=== PATIENT | female | born 1960 | race Caucasian/White ===

== ENCOUNTER 2016-07-27 14:31 | Emergency (ER) | payer MEDICAID ==
[~2016-07-27] VITALS: Ht 157.5 cm; Wt 117.9 kg
[~2016-07-27 14:31] MED LIST: ALBUTEROL SULF8.5 GM INH; ALBUTEROL2.5 MG/3 M HHN; ATORVASTATIN CA20 MG ORAL; AZITHROMYCIN250 MG ORAL; CIPRO500 MG PO; CYCLOBENZAPRINE10 MG ORAL; DIABETA5 MG ORAL; GLIPIZIDE-METF1 EACH PO; HYDROCODON-ACE1 EAC8 ORAL; IBUPROFEN600 MG ORAL; IBUPROFEN600 MG PO; LOPID600 MG ORAL; MACROBID100 MG ORAL; METFORMIN HCL1000 M1 ORAL; NAPROSYN500 M1 ORAL; NORCO 10/3251 EA ORAL; NORCO 5-325 TA1 EACH ORAL; NORCO 5-325 TA1 EACH PO; PREDNISONE50 MG PO; PROMETH-CODEIN 65 ML PO; PROTONIX40 MG ORAL; VICODIN ES1 EA ORAL; ZITHROMAX250 MG ORAL; [UNRECOGNIZED DRUG - OTHER]
[2016-07-27] MEDS ORDERED: GLIPIZIDE5 MG ORAL (14:59)
[2016-07-27] MEDS ORDERED: OMEPRAZOLE10 M1 ORAL (14:59)
[2016-07-27 15:33] VITALS: BP 134/81
[2016-07-27] MEDS ORDERED: ZITHROMAX250 MG ORAL (15:35)
[2016-07-27] MEDS ORDERED: ROBITUSSIN COU118 M4 PO (15:35)
[2016-07-27 15:40] VITALS: BP 134/81
--- NOTE | 2016-07-27 22:10 | Emergency Room Report ---
History of Present Illness General Chief Complaint: Upper Respiratory Illness Source: Patient Present Illness [facility] The patient is a 56-year-old female presenting with subjective fevers, cough, and nasal congestion for the past week. Patient states symptoms have been worsening. The patient denies any sick contacts or recent travel. Patient denies any pain and denies shortness of breath, wheezing, chest pain, abdominal pain, nausea, vomiting, headache, myalgia, rash Allergies: Coded Allergies: No Known Allergies (Unverified , 04/29/12) Patient History Past Medical History: see triage record Pertinent Family History: none Last Menstrual Period: Jul, 2008 Reviewed Nursing Documentation: PMH: Agreed, PSxH: Agreed Nursing Documentation-PMH Past Medical History: No History, Except For Hx Hypertension: Yes Hx Pacemaker: No Hx Asthma: No Hx COPD: No - BRONCHITIS Hx Diabetes: Yes Hx Cancer: No Hx Gastrointestinal Problems: Yes - GERD, GALLSTONES, HIATAL HERNIA Hx Cerebrovascular Accident: No Hx Seizures: No Review of Systems All Other Systems: negative except mentioned in HPI Physical Exam Vital Signs Date Time Temp Pulse Resp B/P Pulse Ox O2 Delivery O2 Flow Rate FiO2 07/27/16 14:54 98.8 99 16 134/81 98 Room Air Sp02 EP Interpretation: reviewed, normal General Appearance: no apparent distress, alert, GCS 15, non-toxic Head: normocephalic, atraumatic Eyes: bilateral eye PERRL, bilateral eye normal inspection ENT: hearing grossly normal, no angioedema, normal voice, TMs + canals normal, uvula midline, moist mucus membranes, tonsillar swelling, pharyngeal erythema Neck: full range of motion, supple/symm/no masses Respiratory: chest non-tender, lungs clear, normal breath sounds, no wheezing, speaking full sentences Cardiovascular #1: regular rate, rhythm, no edema Gastrointestinal: normal bowel sounds, non tender, soft, non-distended, no guarding, no rebound Musculoskeletal: back normal, gait/station normal, normal range of motion, non- tender Neurologic: alert, oriented x3, responsive, motor strength/tone normal, sensory intact, speech normal Psychiatric: judgement/insight normal, memory normal, mood/affect normal, no suicidal/homicidal ideation Skin: normal color, no rash, warm/dry, well hydrated Medical Decision Making PA Attestation Dr. Quan is my supervising physician. Patient management was discussed with my supervising physician Diagnostic Impression: Primary Impression: Pharyngitis, acute ER Course The patient is a 56-year-old female presenting with subjective fevers, cough, and nasal congestion for the past week. Differential diagnosis include but not limited to pharyngitis, sinusitis, pneumonia, rhinitis Physical exam: Vitals within normal limits. Afebrile. No apparent distress. HEENT: There is bilateral tonsillar edema with oropharyngeal erythema. Uvula midline. With decreased membranes. There is anterior cervical lymphadenopathy. Otherwise exam unremarkable. Lungs clear to auscultation bilaterally The patient will be discharged home with a prescription for azithromycin. ER precautions are given Last Vital Signs Date Time Temp Pulse Resp B/P Pulse Ox O2 Delivery O2 Flow Rate FiO2 07/27/16 15:40 98.8 89 16 134/81 98 Room Air Status: improved Disposition: HOME, SELF-CARE Condition: Improved Scripts Azithromycin* (ZITHROMAX*) 250 Mg Tablet 250 MG ORAL DAILY, #6 TAB 0 Refills Take two tables once daily for 1 day, then one tablet once daily for 4 days. Prov: ALLEN AU 07/27/16 Guaifenesin/Dextromethorphan (Robitussin Cough-Chest Dm Liq) 118 Ml Liquid 10 ML PO Q4HR, #118 ML Prov: ALLEN AU 07/27/16 Referrals: NON PHYSICIAN (PCP) Patient Instructions: Pharyngitis Additional Instructions: I discussed my findings with the patient. All questions and concerns have been answered. Treatment and medication compliance have been addressed. I advised the patient that they need to follow up with PMD in 3-5 days. Return to ED if pain remains or worsens, cough worsens or remains, you notice blood in your sputum, you notice wheezing, you experience a fever, or if needed for any reason. Patient verbalized understanding of discharge instructions. ALLEN AU Jul 27, 2016 22:10
[2016-08-28] MEDS ORDERED: MEDROL4 MG ORAL (13:43)
[2016-08-28] MEDS ORDERED: LEVAQUIN250 M1 ORAL (13:43)
== END 2016-07-27 15:40 | disposition home or self-care (01) ==
LOC: EMR 15:40
DX: J02.9 Acute pharyngitis, unspecified (principal); I10 Essential (primary) hypertension; E11.9 Type 2 diabetes mellitus without complications; K21.9 Gastro-esophageal reflux disease without esophagitis; K44.9 Diaphragmatic hernia without obstruction or gangrene
CPT/HCPCS: 99284

== ENCOUNTER 2016-08-22 00:53 | Emergency (ER) | payer MEDICAID ==
[~2016-08-22] VITALS: Ht 157.5 cm; Wt 117.9 kg
[~2016-08-22 00:53] MED LIST changes: +GLIPIZIDE5 MG ORAL; +OMEPRAZOLE10 M1 ORAL; +ROBITUSSIN COU118 M4 PO
[2016-08-22 01:05] VITALS: BP 122/78
[2016-08-22] MEDS ORDERED: PredniSONE 20mg tab ORAL ONE (01:30)
[2016-08-22] MEDS ORDERED: Ipratropium 0.02% Inh Soln 2.5ml UD HHN ONE (01:30)
[2016-08-22] MEDS ORDERED: Albuterol ud Inhalation HHN ONE (01:30)
[2016-08-22 01:47] LABS: APPEARANCE,URINE CLEAR; KETONES,URINE NEGATIVE (NEGATIVE); LEUKOCYTE ESTERASE ,URINE NEGATIVE (NEGATIVE); NITRITE,URINE NEGATIVE (NEGATIVE); PH,URINE 6 (4.5-8.0); PROTEIN,URINE NEGATIVE (NEGATIVE); UROBILINOGEN,URINE NORMAL MG/DL (0.0-1.0)
[2016-08-22] MEDS ORDERED: ALBUTEROL SULF8.5 GM INH (02:11)
[2016-08-22] MEDS ORDERED: PREDNISONE20 MG ORAL (02:11)
--- NOTE | 2016-08-22 02:11 | Emergency Room Report ---
History of Present Illness General Chief Complaint: Sore Throat Source: Patient Present Illness [facility] This is a 56-year-old female with no past medical history. She did say that she had a lot of bronchitis is a little kid. No diagnosis of asthma. She presents with coughing congestion for the last month. On and off. She's been on 2 courses of antibiotics already. Not getting better. Worse with exertion and deep breath. No fever or chills. No nausea no vomiting. Coughing is nonproductive in nature. Allergies: Coded Allergies: No Known Allergies (Unverified , 04/29/12) Patient History Past Medical History: see triage record, old chart reviewed Past Surgical History: other Pertinent Family History: none Social History: Denies: smoking Last Menstrual Period: 2008 Now: No : 11 Para: 6 Immunizations: other Reviewed Nursing Documentation: PMH: Agreed, PSxH: Agreed Nursing Documentation-PMH Hx Hypertension: Yes Hx Pacemaker: No Hx Asthma: No Hx COPD: No - BRONCHITIS Hx Diabetes: Yes Hx Cancer: No Hx Gastrointestinal Problems: Yes - GERD, GALLSTONES, HIATAL HERNIA Hx Cerebrovascular Accident: No Hx Seizures: No Review of Systems Eye: Denies: blurred vision, eye pain ENT: Reports: nose congestion, Denies: ear pain, throat swelling Respiratory: Reports: cough, shortness of breath Cardiovascular: Denies: chest pain, palpitations Gastrointestinal: Denies: abdominal pain, diarrhea, nausea, vomiting Musculoskeletal: Denies: back pain, joint pain Skin: Denies: rash Neurological: Denies: headache, numbness Endocrine: Denies: increased thirst, increased urine Hematologic/Lymphatic: Denies: easy bruising All Other Systems: negative except mentioned in HPI Physical Exam Vital Signs Date Time Temp Pulse Resp B/P Pulse Ox O2 Delivery O2 Flow Rate FiO2 08/22/16 01:00 98.4 117 20 119/75 96 Room Air vitals showed tachycardia Sp02 EP Interpretation: reviewed, normal General Appearance: well appearing, no apparent distress, alert Head: normocephalic, atraumatic Eyes: bilateral eye EOMI, bilateral eye PERRL ENT: hearing grossly normal, normal pharynx Neck: full range of motion, supple, no meningismus Respiratory: chest non-tender, lungs clear - Coughing fits with inspiration, normal breath sounds Cardiovascular #1: regular rate, rhythm, no murmur Gastrointestinal: normal bowel sounds, non tender, no mass, no organomegaly, no bruit, non-distended Musculoskeletal: back normal, gait/station normal, normal range of motion Psychiatric: mood/affect normal Skin: warm/dry Medical Decision Making Diagnostic Impression: Primary Impression: Upper respiratory infection Qualified Codes: J06.9 - Acute upper respiratory infection, unspecified; B97.89 - Other viral agents as the cause of diseases classified elsewhere Additional Impression: Acute bronchospasm due to viral infection ER Course Patient presents with upper respiratory infection with bronchospasm. This is a viral infection. She is much improved after breathing treatment. We'll add steroid. Urine showed no glycosuria and Accu-Chek is normal. I see no evidence of ACS, PE, dissection, pneumonia to name a few. Chest X-Ray Diagnostic Results EP Interpretation: Yes Findings: no consolidation, no effusion, no pneumothorax, no acute cardiopulmonary disease Number of Views: 1 Last Vital Signs Date Time Temp Pulse Resp B/P Pulse Ox O2 Delivery O2 Flow Rate FiO2 08/22/16 01:36 100 18 100 Room Air 08/22/16 01:05 98.6 122/78 Status: improved Disposition: HOME, SELF-CARE Condition: Stable Scripts Prednisone* (PREDNISONE*) 20 Mg Tablet 60 MG ORAL DAILY, #12 TAB Prov: MICHELLE CONTRERAS M.D. 08/22/16 Albuterol Sulfate* (ALBUTEROL SULFATE MDI*) 8.5 Gm Hfa.aer.ad 2 PUFF INH Q4H Y for cough/wheezing, #1 EA 0 Refills Prov: MICHELLE CONTRERAS M.D. 08/22/16 Referrals: [facility],REFERRING (PCP) Additional Instructions: Followup with your DrJenniffer in 2-3 days. Return if symptom worsen. MICHELLE CONTRERAS M.D. Aug 22, 2016 02:11
[2016-08-22 02:25] VITALS: BP 127/80
--- NOTE | 2016-08-22 13:47 | Diagnostic Imaging Report ---
Indication: SOB Technique: One view of the chest Comparison: none Findings: Body habitus limits assessment. Increased opacity is seen at both lung bases, probably due to overlying soft tissue, although infiltrate not completely excludable Lungs and pleural spaces are otherwise clear. Heart size is normal. No definite significant change Impression: Bilateral basilar opacities, probably on the basis of overlying soft tissue, but infiltrates not completely excludable. Correlate with clinical findings No acute process otherwise
[2016-08-28] MEDS ORDERED: LEVAQUIN250 M1 ORAL (13:43)
[2016-08-28] MEDS ORDERED: MEDROL4 MG ORAL (13:43)
== END 2016-08-22 02:25 | disposition home or self-care (01) ==
LOC: EMR 01:15
DX: J06.9 Acute upper respiratory infection, unspecified (principal); J98.01 Acute bronchospasm; I10 Essential (primary) hypertension; E11.9 Type 2 diabetes mellitus without complications; K44.9 Diaphragmatic hernia without obstruction or gangrene
CPT/HCPCS: 71010; 81003; 94640; 94664; 99284

== ENCOUNTER 2016-08-26 23:51 | Inpatient (IN) | payer MEDICAID ==
[~2016-08-26] VITALS: Ht 157.5 cm; Wt 113.4 kg
[~2016-08-26 23:51] MED LIST changes: +PREDNISONE20 MG ORAL
[2016-08-27] VITALS (10 sets, daily range): BP systolic 107–127; BP diastolic 72–80
[2016-08-27] MEDS ORDERED: Solu-MEDROL 125mg Inj IVP ONE (00:15)
[2016-08-27] MEDS ORDERED: Albuterol ud Inhalation HHN ONE (00:15)
[2016-08-27] MEDS ORDERED: Ipratropium 0.02% Inh Soln 2.5ml UD HHN ONE (00:15)
[2016-08-27 00:53] LABS: BASOPHILS % (AUTO) 0.8 % (0.0-2.0); LYMPHOCYTES % (AUTO) 36.6 % (20.0-45.0); MEAN CORPUSCULAR HEMOGLOBIN 29.3 PG (27.0-31.0); MEAN CORPUSCULAR HGB CONC 32.5 G/DL (32.0-36.0); MEAN CORPUSCULAR VOLUME 90 FL (80-99); MEAN PLATELET VOLUME 7.3 FL (6.5-10.1); MONOCYTES % (AUTO) 7.8 % (1.0-10.0); NEUTROPHILS % (AUTO) 52.9 % (45.0-75.0); PLATELET COUNT 210 K/UL (150-450); RED BLOOD COUNT 4.67 M/UL (4.20-5.40); RED CELL DISTRIBUTION WIDTH 12.5 % (11.6-14.8); WHITE BLOOD COUNT 6.5 K/UL (4.8-10.8)
[2016-08-27 01:02] LABS: INR 0.9 (0.9-1.1); PROTHROMBIN TIME 9.5 SEC (9.30-11.50)
[2016-08-27 01:07] LABS: TROPONIN I < 0.30 ng/mL (<=0.30)
[2016-08-27 01:11] LABS: CALCIUM 8.7 mg/dL (8.6-10.2); CREATININE 1.1 mg/dL (0.5-0.9); TOTAL PROTEIN 7.7 g/dL (6.6-8.7)
[2016-08-27 01:15] LABS: POTASSIUM 7.5 mEQ/L (3.4-4.9)
[2016-08-27 01:16] LABS: APPEARANCE,URINE CLEAR; KETONES,URINE NEGATIVE (NEGATIVE); PROTEIN,URINE 1+ (NEGATIVE)
[2016-08-27 01:17] LABS: LEUKOCYTE ESTERASE ,URINE NEGATIVE (NEGATIVE); NITRITE,URINE NEGATIVE (NEGATIVE); SQUAMOUS EPITHELIAL CELL,UR MODERATE /LPF (NONE/OCC); UROBILINOGEN,URINE NORMAL MG/DL (0.0-1.0)
[2016-08-27 01:18] LABS: BACTERIA,URINE FEW /HPF
[2016-08-27] MEDS ORDERED: cefTRIAXone 1 GM in NS 55 ML IVPB ONE (01:30)
[2016-08-27] MEDS ORDERED: Azithromycin 500 MG in D5W 275 ML IVPB ONE (01:30)
--- NOTE | 2016-08-27 01:42 | Emergency Room Report ---
History of Present Illness General Chief Complaint: Upper Respiratory Illness Source: Patient Present Illness [facility] The patient presents with a month of respiratory symptomatology. She been having a cough. She's producing yellow phlegm at this time without any blood. She hears herself wheezing. She's been seen twice before once here and also just a couple days ago when the hospital ([place]). She was given a prescription for Robitussin with codeine. She's not better. She does have dyspnea on exertion. The cough is keeping her awake. She is nauseated but has not been vomiting. She denies any diarrhea. She denies dysuria. Some headache with cough. No rashes. Post menopausal. She has a history of asthma/COPD and this is one of the worst episodes she has had. Allergies: Coded Allergies: No Known Allergies (Unverified , 04/29/12) Patient History Past Medical History: see triage record Social History: Reports: drug use - prior cocaine, smoking - Prior Social History Narrative At home Reviewed Nursing Documentation: PMH: Agreed, PSxH: Agreed Nursing Documentation-PMH Hx Hypertension: Yes Hx Pacemaker: No Hx Asthma: No Hx COPD: No - BRONCHITIS Hx Diabetes: Yes Hx Cancer: No Hx Gastrointestinal Problems: Yes - GERD, GALLSTONES, HIATAL HERNIA Hx Cerebrovascular Accident: No Hx Seizures: No Review of Systems All Other Systems: negative except mentioned in HPI Physical Exam Vital Signs Date Time Temp Pulse Resp B/P Pulse Ox O2 Delivery O2 Flow Rate FiO2 08/26/16 23:58 98.2 98 16 106/75 95 Room Air Sp02 EP Interpretation: reviewed, abnormal - interpreted as low by me General Appearance: well appearing, no apparent distress, GCS 15 Head: normocephalic Eyes: bilateral eye PERRL, bilateral eye normal inspection ENT: moist mucus membranes Neck: supple Respiratory: chest non-tender, crackles, rales, wheezing, expiration, inspiration Cardiovascular #1: regular rate, rhythm Cardiovascular #2: 2+ radial (R) Gastrointestinal: normal inspection, normal bowel sounds, non tender, no mass, non-distended Musculoskeletal: back normal, gait/station normal, normal range of motion Neurologic: alert, oriented x3, grossly normal Psychiatric: mood/affect normal Skin: normal inspection, warm/dry Medical Decision Making Diagnostic Impression: Primary Impression: RML pneumonia Qualified Codes: J18.9 - Pneumonia, unspecified organism Additional Impression: Bronchospasm ER Course The patient presents with a month's worth of respiratory symptoms. Differential includes influenza, bronchitis, pertussis, COPD exacerbation, pneumonia amongst others. Urgent evaluation with labs including blood cultures a lactate and EKG and x-ray are undertaken. The patient will be given Solu Medrol and also a breathing treatment here. The patient has a right middle lobe infiltrate. The fact that this process been going on for a month and she has bronchospasm the patient is to be admitted for IV antibiotics and continued respiratory treatments. Initial potassium returned critically high. The patient has no peaked T waves. This was repeated. Also BNP is obtained to exclude any pulmonary hypertension. Repeat potassium normal. BNP normal. Admit med Dr. Riggs. Laboratory Tests Test 08/27/16 00:27 08/27/16 00:37 08/27/16 01:30 White Blood Count 6.5 K/UL (4.8-10.8) Red Blood Count 4.67 M/UL (4.20-5.40) Hemoglobin 13.7 G/DL (12.0-16.0) Hematocrit 42.0 % (37.0-47.0) Mean Corpuscular Volume 90 FL (80-99) Mean Corpuscular Hemoglobin 29.3 PG (27.0-31.0) Mean Corpuscular Hemoglobin Concent 32.5 G/DL (32.0-36.0) Red Cell Distribution Width 12.5 % (11.6-14.8) Platelet Count 210 K/UL (150-450) Mean Platelet Volume 7.3 FL (6.5-10.1) Neutrophils (%) (Auto) 52.9 % (45.0-75.0) Lymphocytes (%) (Auto) 36.6 % (20.0-45.0) Monocytes (%) (Auto) 7.8 % (1.0-10.0) Eosinophils (%) (Auto) 2.0 % (0.0-3.0) Basophils (%) (Auto) 0.8 % (0.0-2.0) Prothrombin Time 9.5 SEC (9.30-11.50) Prothrombin Time INR 0.9 (0.9-1.1) PTT 26 SEC (23-33) Sodium Level 137 mEQ/L (135-145) 138 mEQ/L (135-145) Potassium Level 7.5 mEQ/L (3.4-4.9) *H 3.8 mEQ/L (3.4-4.9) Chloride Level 96 mEQ/L (98-107) L 99 mEQ/L (98-107) Carbon Dioxide Level 27 mEQ/L (20-30) 24 mEQ/L (20-30) Anion Gap 14 (5-15) 15 (5-15) Blood Urea Nitrogen 15 mg/dL (7-23) 15 mg/dL (7-23) Creatinine 1.1 mg/dL (0.5-0.9) H 1.0 mg/dL (0.5-0.9) H Estimate Glomerular Filtration Rate 51.0 mL/min (>60) 56.9 mL/min (>60) Glucose Level 130 mg/dL (74-106) H 144 mg/dL (74-106) H Lactic Acid Level 1.30 mmol/L (0.66-2.22) Calcium Level 8.7 mg/dL (8.6-10.2) 8.7 mg/dL (8.6-10.2) Total Bilirubin 0.3 mg/dL (0.0-1.2) Aspartate Amino Transferase (AST) 65 U/L (5-40) H Alanine Aminotransferase (ALT) 43 U/L (3-33) H Alkaline Phosphatase 82 U/L (35-104) Troponin I < 0.30 ng/mL (<=0.30) Total Protein 7.7 g/dL (6.6-8.7) Albumin 4.0 g/dL (3.5-5.2) Globulin 3.7 g/dL Albumin/Globulin Ratio 1.0 (1.0-2.7) Urine Color Yellow Urine Appearance Clear Urine pH 5.0 (4.5-8.0) Urine Specific [place] 1.020 (1.005-1.035) Urine Protein 1+ (NEGATIVE) H Urine Glucose (UA) Negative (NEGATIVE) Urine Ketones Negative (NEGATIVE) Urine Occult Blood 1+ (NEGATIVE) H Urine Nitrite Negative (NEGATIVE) Urine Bilirubin Negative (NEGATIVE) Urine Urobilinogen Normal MG/DL (0.0-1.0) Urine Leukocyte Esterase Negative (NEGATIVE) Urine RBC 2-4 /HPF (0 - 2) H Urine WBC 2-4 /HPF (0 - 2) Urine Squamous Epithelial Cells Moderate /LPF (NONE/OCC) H Urine Bacteria Few /HPF (NONE) Pro-B-Type Natriuretic Peptide 5 pg/mL (0-125) Microbiology Date/Time Source Procedure Growth Status 08/27/16 00:30 Nasal Nares Influenza Types A,B Antigen (ROC) - Final Complete EKG Diagnostic Results Rate: normal Rhythm: NSR ST Segments: no acute changes Rhythm Strip Diag. Results EP Interpretation: yes Rhythm: NSR, no PVC's, no ectopy Chest X-Ray Diagnostic Results EP Interpretation: Yes Findings: no effusion, no pneumothorax, other - Right middle lobe infiltrate Number of Views: 1 Last Vital Signs Date Time Temp Pulse Resp B/P Pulse Ox O2 Delivery O2 Flow Rate FiO2 08/27/16 00:45 96 16 99 Room Air 08/27/16 00:10 98.2 107/75 Status: improved Disposition: ADMITTED INPATIENT Condition: Serious Javon Dill M.D. Aug 27, 2016 01:42
[2016-08-27 02:00] LABS: CALCIUM 8.7 mg/dL (8.6-10.2); GLOMERULAR FILTRATION RATE 56.9 mL/min (>60); POTASSIUM 3.8 mEQ/L (3.4-4.9)
[2016-08-27] MEDS ORDERED: Azithromycin Inj IV ONE (02:41)
[2016-08-27] MEDS ORDERED: IOPHEN-C NR LI473 ML PO (05:31)
[2016-08-27] MEDS ORDERED: BENZONATATE200 MG ORAL (05:31)
[2016-08-27] MEDS ORDERED: Nitroglycerin Subl 0.4mg tab (Bottle Of 25) SL PRN (08:30)
[2016-08-27] MEDS ORDERED: Morphine Sulfate 2mg/ml Inj IVP PRN (08:30)
[2016-08-27] MEDS ORDERED: LORazepam Inj 2mg/ml 1ml IV PRN (08:30)
[2016-08-27] MEDS ORDERED: DuoNeb 0.5-3(2.5)mg/3ml neb HHN PRN (08:30)
[2016-08-27] MEDS ORDERED: Promethazine/Codeine 5ml UD ORAL PRN (08:30)
[2016-08-27] MEDS ORDERED: Theophylline ER 100mg ORAL SCH (09:00)
[2016-08-27] MEDS ORDERED: Heparin 5000 units/ml inj SUBQ SCH (09:00)
--- NOTE | 2016-08-27 10:15 | Diagnostic Imaging Report ---
Indication: COUGH Technique: One view of the chest Comparison: 08/22/2016 Findings: Mild generalized interstitial prominence and central bronchial wall thickening persists, appears similar to the prior exam, suspect chronic although mild interstitial congestion not completely excludable. The heart is borderline enlarged. The pleural spaces are clear. Impression: Equivocal mild interstitial prominence, suspect chronic although mild interstitial congestion not completely excludable. Correlate with clinical findings Borderline cardiomegaly This agrees with the preliminary interpretation provided by the emergency room physician
[2016-08-27] MEDS ORDERED: NovoLOG Insulin Flexpen SUBQ SCH (11:30)
[2016-08-27] MEDS ORDERED: Solu-MEDROL 125mg Inj IV SCH (12:00)
--- NOTE | 2016-08-27 15:28 | History and Physical ---
History of Present Illness General Date patient seen: Aug 27, 2016 Reason for Hospitalization: Upper Respiratory Illness Present Illness HPI 56 year old patient with Hx of DM and Asthma presented with a month of cough. producing yellow phlegm, wheezing. She's been seen twice before once here and also just a couple days ago when the hospital. She does have dyspnea on exertion. she is admitted for dysnpnea and acute exacerbation of asthma Allergies: Coded Allergies: No Known Allergies (Unverified , 04/29/12) Medication History Scheduled Atorvastatin Calcium* (Atorvastatin Calcium*), 20 MG ORAL BEDTIME, (Reported) Glipizide* (Glipizide*), 10 MG ORAL DAILY, (Reported) Metformin Hcl* (Metformin Hcl*), 1,000 MG ORAL BID, (Reported) Omeprazole (Omeprazole), Unknown Dose ORAL DAILY, (Reported) Prednisone* (Prednisone*), 60 MG ORAL DAILY Scheduled PRN Albuterol Sulfate* (Albuterol Sulfate Mdi*), 2 PUFF INH Q4H PRN for cough/ wheezing Benzonatate* (Benzonatate*), 200 MG ORAL THREE TIMES A DAY PRN for For Cough, ( Reported) Miscellaneous Medications Guaifenesin/Codeine Phosphate (Iophen-C Nr Liquid), 473 ML PO, (Reported) Discontinued Medications Albuterol Sulfate* (Albuterol Sulfate Mdi*), 2 PUFF INH Q6H Discontinued Reason: Therapy completed Azithromycin* (Zithromax*), 250 MG ORAL DAILY Discontinued Reason: Therapy completed Glipizide/Metformin Hcl (Glipizide-Metformin 2.5-250 Mg), 1 EACH PO TWICE A DAY, (Reported) Discontinued Reason: Therapy completed Guaifenesin/Dextromethorphan (Robitussin Cough-Chest Dm Liq), 10 ML PO Q4HR Discontinued Reason: Therapy completed Hydrocodone Bit/Acetaminophen 5-325* ([place] 5-325*), 1 TAB ORAL Q6H PRN for For Pain Discontinued Reason: Therapy completed Promethazine HCl/Codeine (Prometh-Codein 6.25-10 mg/5 ml), 5 ML PO q4-6 hours PRN for For Cough Discontinued Reason: Therapy completed Patient History Healthcare decision maker Resuscitation status Full Code Advanced Directive on File Past Medical/Surgical History Past Medical/Surgical History: (1) bronchitis (2) Diabetes Review of Systems All Other Systems: negative except mentioned in HPI Physical Exam General Appearance: WD/WN Lines, tubes and drains: peripheral, central line HEENT: normocephalic, anicteric Respiratory/Chest: chest wall non-tender, lungs clear Cardiovascular/Chest: normal peripheral pulses, normal rate Abdomen: normal bowel sounds, non tender Extremities: normal range of motion, non-tender Last 24 Hour Vital Signs Date Time Temp Pulse Resp B/P Pulse Ox O2 Delivery O2 Flow Rate FiO2 08/27/16 11:20 98.2 101 19 126/80 95 Room Air 08/27/16 09:49 98.1 80 19 127/76 95 Room Air 08/27/16 08:15 98.1 80 19 127/76 95 Room Air 08/27/16 08:05 98.1 80 19 127/76 95 Room Air 08/27/16 07:44 98.0 99 21 116/73 96 Room Air 08/27/16 07:02 98.0 99 21 116/73 96 Room Air 08/27/16 06:10 98.0 99 18 114/72 96 Room Air 08/27/16 04:10 97.8 99 18 110/72 96 Room Air 08/27/16 02:10 97.8 99 19 109/74 98 Room Air 08/27/16 00:45 96 16 99 Room Air 08/27/16 00:26 98 16 95 Room Air 08/27/16 00:25 98 16 Room Air 08/27/16 00:10 98 16 Room Air 08/27/16 00:10 98.2 98 16 107/75 98 Room Air 08/26/16 23:58 98.2 98 16 106/75 95 Room Air Intake and Output 08/26/16 08/27/16 19:00 07:00 Intake Total 330 ml Balance 330 ml IV Total 330 ml Laboratory Tests Test 08/27/16 00:27 08/27/16 00:37 08/27/16 01:30 White Blood Count 6.5 K/UL (4.8-10.8) Red Blood Count 4.67 M/UL (4.20-5.40) Hemoglobin 13.7 G/DL (12.0-16.0) Hematocrit 42.0 % (37.0-47.0) Mean Corpuscular Volume 90 FL (80-99) Mean Corpuscular Hemoglobin 29.3 PG (27.0-31.0) Mean Corpuscular Hemoglobin Concent 32.5 G/DL (32.0-36.0) Red Cell Distribution Width 12.5 % (11.6-14.8) Platelet Count 210 K/UL (150-450) Mean Platelet Volume 7.3 FL (6.5-10.1) Neutrophils (%) (Auto) 52.9 % (45.0-75.0) Lymphocytes (%) (Auto) 36.6 % (20.0-45.0) Monocytes (%) (Auto) 7.8 % (1.0-10.0) Eosinophils (%) (Auto) 2.0 % (0.0-3.0) Basophils (%) (Auto) 0.8 % (0.0-2.0) Prothrombin Time 9.5 SEC (9.30-11.50) Prothromb Time International Ratio 0.9 (0.9-1.1) Activated Partial Thromboplast Time 26 SEC (23-33) Sodium Level 137 mEQ/L (135-145) 138 mEQ/L (135-145) Potassium Level 7.5 mEQ/L (3.4-4.9) *H 3.8 mEQ/L (3.4-4.9) Chloride Level 96 mEQ/L (98-107) L 99 mEQ/L (98-107) Carbon Dioxide Level 27 mEQ/L (20-30) 24 mEQ/L (20-30) Anion Gap 14 (5-15) 15 (5-15) Blood Urea Nitrogen 15 mg/dL (7-23) 15 mg/dL (7-23) Creatinine 1.1 mg/dL (0.5-0.9) H 1.0 mg/dL (0.5-0.9) H Estimat Glomerular Filtration Rate 51.0 mL/min (>60) 56.9 mL/min (>60) Glucose Level 130 mg/dL (74-106) H 144 mg/dL (74-106) H Lactic Acid Level 1.30 mmol/L (0.66-2.22) Calcium Level 8.7 mg/dL (8.6-10.2) 8.7 mg/dL (8.6-10.2) Total Bilirubin 0.3 mg/dL (0.0-1.2) Aspartate Amino Transf (AST/SGOT) 65 U/L (5-40) H Alanine Aminotransferase (ALT/SGPT) 43 U/L (3-33) H Alkaline Phosphatase 82 U/L (35-104) Troponin I < 0.30 ng/mL (<=0.30) Total Protein 7.7 g/dL (6.6-8.7) Albumin 4.0 g/dL (3.5-5.2) Globulin 3.7 g/dL Albumin/Globulin Ratio 1.0 (1.0-2.7) Urine Color Yellow Urine Appearance Clear Urine pH 5.0 (4.5-8.0) Urine Specific [place] 1.020 (1.005-1.035) Urine Protein 1+ (NEGATIVE) H Urine Glucose (UA) Negative (NEGATIVE) Urine Ketones Negative (NEGATIVE) Urine Occult Blood 1+ (NEGATIVE) H Urine Nitrite Negative (NEGATIVE) Urine Bilirubin Negative (NEGATIVE) Urine Urobilinogen Normal MG/DL (0.0-1.0) Urine Leukocyte Esterase Negative (NEGATIVE) Urine RBC 2-4 /HPF (0 - 2) H Urine WBC 2-4 /HPF (0 - 2) Urine Squamous Epithelial Cells Moderate /LPF (NONE/OCC) H Urine Bacteria Few /HPF (NONE) Pro-B-Type Natriuretic Peptide 5 pg/mL (0-125) Microbiology Date/Time Source Procedure Growth Status 08/27/16 00:30 Nasal Nares Influenza Types A,B Antigen (ROC) - Final Complete Height (Feet): 5 Height (Inches): 2.00 Weight (Pounds): 250 Medications Current Medications Medications (Trade) Dose Ordered Sig/Sam Route PRN Reason Start Time Stop Time Status Last Admin Dose Admin Acetaminophen (Tylenol) 650 mg Q4H PRN ORAL fever 08/27/16 08:30 09/26/16 08:29 Albuterol/ Ipratropium (DuoNeb 0.5-3(2.5)mg/3ml) 3 ml EVERY 4 HOURS PRN HHN dyspnea 08/27/16 08:30 2 08:29 Atorvastatin Calcium (Lipitor) 20 mg BEDTIME ORAL 08/27/16 21:00 09/26/16 20:59 Clonidine HCl (Catapres) 0.1 mg EVERY 4 HOURS PRN ORAL sbp more than 160 08/27/16 08:30 09/26/16 08:29 Dextrose (Dextrose 50%) STAT PRN IV Hypoglycemia 08/27/16 08:30 09/26/16 08:29 Heparin Sodium (Porcine) (Heparin 5000 units/ml) 5,000 units EVERY 12 HOURS SUBQ 08/27/16 09:00 09/26/16 08:59 08/27/16 09:05 Insulin Aspart (NovoLOG) BEFORE MEALS AND HS SUBQ 08/27/16 11:30 09/26/16 11:29 08/27/16 12:08 Lorazepam (Ativan 2mg/ml 1ml) 0.5 mg Q4H PRN IV For Anxiety 08/27/16 08:30 09/03/16 08:29 Methylprednisolone Sodium Succinate (Solu-MEDROL) 60 mg EVERY 6 HOURS IV 08/27/16 12:00 09/26/16 11:59 08/27/16 12:08 Morphine Sulfate (Morphine Sulfate) 2 mg EVERY 4 HOURS PRN IVP severe pain 7-10 08/27/16 08:30 09/03/16 08:29 Nitroglycerin (Ntg) 0.4 mg Q5M X 3 DOSES PRN SL Prn Chest Pain 08/27/16 08:30 09/26/16 08:29 Ondansetron HCl (Zofran) 4 mg Q6H PRN IVP Nausea & Vomiting 08/27/16 08:30 09/26/16 08:29 Promethazine HCl/ Codeine (Phenergan with Codeine) 5 ml EVERY 6 HOURS PRN ORAL cough 08/27/16 08:30 09/26/16 08:29 Temazepam (Restoril) 15 mg HSPRN PRN ORAL Insomnia 08/27/16 08:30 09/03/16 08:29 Theophylline (Qasim-Dur) 100 mg EVERY 12 HOURS ORAL 08/27/16 09:00 09/26/16 08:59 08/27/16 09:04 Assessment/Plan Problem List: (1) Acute asthma exacerbation ICD Codes: J45.901 - Unspecified asthma with (acute) exacerbation SNOMED: [id number] Assessment/Plan steroids antibiotics pt is already feeling better and wants to go home. ROBERTO DOWD Aug 27, 2016 15:28
[2016-08-27] MEDS ORDERED: Atorvastatin 20mg tab ORAL SCH (21:00)
[2016-08-28] MEDS ORDERED: MEDROL4 MG ORAL (13:43)
[2016-08-28] MEDS ORDERED: LEVAQUIN250 M1 ORAL (13:43)
--- NOTE | 2016-08-28 13:44 | Discharge Summary ---
Discharge Summary Hospital Course Date of Admission Aug 27, 2016 at 02:18 Date of Discharge Aug 27, 2016 at 16:41 Admitting Diagnosis pneumonia HPI Reyna Hough is a 56 year old female who was admitted on Aug 27, 2016 at 02:18 for Pneumonia Hospital Course dc summary dictated #[id number] Discharge Medications New Medications: Levofloxacin* (Levaquin*) 250 Mg Tablet 250 MG ORAL DAILY, #5 TAB Methylprednisolone* (Medrol*) 4 Mg Tablet 4 MG ORAL DAILY, #10 TAB 0 Refills Continued Medications: Albuterol Sulfate* (Albuterol Sulfate Mdi*) 8.5 Gm Hfa.aer.ad 2 PUFF INH Q4H PRN for cough/wheezing, #1 EA 0 Refills Atorvastatin Calcium* (Atorvastatin Calcium*) 20 Mg Tablet 20 MG ORAL BEDTIME, TAB Benzonatate* (Benzonatate*) 200 Mg Capsule 200 MG ORAL THREE TIMES A DAY PRN for For Cough MDD 600 mg, PERLE Glipizide* (Glipizide*) 5 Mg Tablet 10 MG ORAL DAILY, TAB Guaifenesin/Codeine Phosphate (Iophen-C Nr Liquid) 473 Ml Liquid 473 ML PO, ML Metformin Hcl* (Metformin Hcl*) 1,000 Mg Tablet 1000 MG ORAL BID, TAB Omeprazole (Omeprazole) 10 Mg Capsule.dr Unknown Dose ORAL DAILY, #30 CAP 0 Refills Discharge Condition Upon Discharge: stable Discharge Disposition Patient was discharged to Home (01) Discharge Diagnoses: Discharge Instructions Discharge Instructions Special Instructions I have been assigned to complete a D/C Summary on this account. I was not involved in the patient management Lexis Burciaga NP (Vanchtein) Aug 28, 2016 13:44
--- NOTE | 2016-08-28 20:19 | Cardiology Report ---
APPROVED REPORT EKG Measurement Heart [id number] Normal sinus rhythm Normal ECG
--- NOTE | 2016-08-29 04:18 | Discharge Summary 2 SIG ---
DATE OF ADMISSION: 08/27/2016 DATE OF DISCHARGE: 08/27/2016 REASON FOR ADMISSION: 56 years old female, presented to the emergency room with respiratory symptoms. She reported having productive cough with yellow phlegm for three to four weeks. She denies hemoptysis. She reported wheezing and occasional shortness of breath. Denied chest pain. Denied pleuritic chest pain. She was in [facility] few days ago and was given prescription for cough syrup. She is not feeling better. She also reported dyspnea on exertion. The patient has a past history of asthma and diabetes. In the emergency department, chest x-ray revealed possible infiltrate. Also, potassium was critically high , however when repeated , came back negative. No peaked T-waves on EKG. EKG revealed normal sinus rhythm, no ST changes. Troponin negative. ProBNP was stable. Lactic acid within normal limits. No fever, no leukocytosis. ADMITTING DIAGNOSES: 1. Asthma exacerbation 2. Possible pneumonia. HOSPITAL COURSE: The patient admitted. The patient started on empiric antibiotic, intravenous steroids, and nebulizing treatment as needed. Supplemental oxygen as needed provided. Pulse oximetry was stable on room air. Antitussive provided as needed. The patient was feeling better by the end of the day and wanted to go home. Blood sugar was managed with sliding scale of insulin. The patient was discharged on empiric antibiotics and Medrol Dosepak. DISCHARGE DIAGNOSES: 1. Acute asthma exacerbation. 2. Diabetes mellitus. 3. Morbid obesity. 4. Possible pneumonia DISCHARGE MEDICATIONS: See medication reconciliation list. DISCHARGE INSTRUCTIONS: The patient to follow up with the primary medical doctor. The patient advised to follow up with the internal control manager per her insurance and to maintain routine treatment for asthma with daily inhaled steroids as will be further determined by internal control manager as outpatient. . Arely Riggs M.D. I have been assigned to dictate discharge summary on this account and I was not involved in the patient's management. Lexis [facility] hospitalRaheem N.PJenniffer DR: CULLEN JOB#: [id number] CC: MANDA
== END 2016-08-27 16:41 | disposition home or self-care (01) | DRG 141 ==
LOC: EMR 08-27 00:30 → 4E 08-27 02:18 → EDBEDREQ 08-27 05:47
DX: J45.901 Unspecified asthma with (acute) exacerbation (principal); J18.9 Pneumonia, unspecified organism; E11.9 Type 2 diabetes mellitus without complications; Z68.42 Body mass index [BMI] 45.0-49.9, adult; E66.01 Morbid (severe) obesity due to excess calories
CPT/HCPCS: 36415; 71010; 80048; 80053; 81003; 82962; 83605; 83880; 84484; 85025; 85610; 85730; 86710; 87070; 87205; 93005; 94640; 94664; J1815

== ENCOUNTER 2017-05-15 16:10 | Emergency (ER) | payer MEDICAID ==
[~2017-05-15] VITALS: Ht 157.5 cm; Wt 117.0 kg
[~2017-05-15 16:10] MED LIST changes: +BENZONATATE200 MG ORAL; +IOPHEN-C NR LI473 ML PO; +LEVAQUIN250 M1 ORAL; +MEDROL4 MG ORAL
[2017-05-15 16:20] VITALS: BP 106/54
[2017-05-15 16:57] LABS: ABG BASE EXCESS 0; ABG PCO2 36.1 mmHg (35.0-45.0)
--- NOTE | 2017-05-15 17:07 | Emergency Room Report ---
History of Present Illness General Chief Complaint: General Complaint Source: Patient Present Illness HPI 57-year-old female history of hyperlipidemia and diabetes presenting with hyperglycemia. Patient states that she takes metformin and no other medication. Patient states that for one week she has had polyuria and polydipsia, has had increasing blood sugars, the max was 460. Denies any fever chills chest pain nausea vomiting diarrhea Allergies: Coded Allergies: No Known Allergies (Unverified , 04/29/12) Patient History Past Medical History: see triage record Past Surgical History: none Pertinent Family History: none Last Menstrual Period: Post Reviewed Nursing Documentation: PMH: Agreed, PSxH: Agreed Nursing Documentation-PMH Hx Cardiac Problems: No Hx Hypertension: Yes Hx Pacemaker: No Hx Asthma: No Hx COPD: Yes Hx Diabetes: Yes - Type2 Hx Cancer: No Hx Gastrointestinal Problems: Yes - Gall stones Hx Dialysis: Yes - Hepatomegaly Hx Neurological Problems: No Hx Cerebrovascular Accident: No Hx Seizures: No Review of Systems All Other Systems: negative except mentioned in HPI Physical Exam Vital Signs Date Time Temp Pulse Resp B/P (MAP) Pulse Ox O2 Delivery O2 Flow Rate FiO2 05/15/17 16:16 97.9 87 20 115/80 97 Room Air Sp02 EP Interpretation: reviewed, normal General Appearance: normal inspection, well appearing, no apparent distress, alert, GCS 15, non-toxic Head: normocephalic, atraumatic Eyes: bilateral eye normal inspection, bilateral eye PERRL, bilateral eye EOMI ENT: normal ENT inspection, normal pharynx, normal voice, moist mucus membranes Neck: normal inspection, full range of motion, supple Respiratory: normal inspection, lungs clear, normal breath sounds, no respiratory distress, no retraction, no wheezing, speaking full sentences, chest symmetrical Cardiovascular #1: normal inspection, regular rate, rhythm, no edema, normal capillary refill Cardiovascular #2: 2+ radial (R), 2+ radial (L) Gastrointestinal: normal inspection, non tender, soft, non-distended, no guarding Musculoskeletal: normal inspection, back normal, normal range of motion, non- tender Neurologic: normal inspection, alert, oriented x3, responsive, motor strength/ tone normal, sensory intact, normal gait, speech normal Psychiatric: normal inspection, judgement/insight normal, memory normal Skin: normal inspection, normal color, no rash, warm/dry, well hydrated, normal turgor Medical Decision Making Diagnostic Impression: Primary Impression: Hyperglycemia ER Course 57 yo female with hyperglycemia DDX: Hyperglycemia rule out DKA, rule out other electrolyte abnormalities, rule out dehydration, infectious UTI/pneumonia Plan: Obtain labs, ua, ucx, CXR, EKG ER course: Patient has remained stable during ED stay. IV fluids given Patient had 2 L fluid given Repeat Accu-Chek was 258 even after patient ate a meal Labs - NOT in dka She has been stable during ED stay We'll discharge Disposition: Patient is to be discharged to home. Patient is instructed to follow up with their primary care doctor within 5 days. \Strict return precautions discussed with patient such as fever, chills, worsening/severe pain, nausea, vomiting, which may indicate severe illness. Patient verbalizes understanding and agrees with plan. Please note that this Emergency Department Report was dictated using [employer] clerk food [employer] beverage technology software, occasionally this can lead to erroneous entry secondary to interpretation by the dictation equipment EKG Diagnostic Results EP Interpretation: Yes Rate: normal Rhythm: NSR ST Segments: No acute changes ASA given to patient: Rhythm Strip EP Interpretation: Yes Rate: 77 Rhythm: NSR, no PVCs, no ectopy Chest X-ray CXR: Ordered: Yes 1 view Indication: Chest pain EP interpretation: Yes Interpretation: No consolidation, no effusion, no PTX, no acute cardiopulmonary disease Impression: No acute disease Electronically signed by Preston Vogel MD Laboratory Tests Test 05/15/17 16:37 05/15/17 16:45 05/15/17 16:46 Urine Color Pale yellow Urine Appearance Clear Urine pH 6 (4.5-8.0) Urine Specific [place] 1.015 (1.005-1.035) Urine Protein Negative (NEGATIVE) Urine Glucose (UA) 4+ (NEGATIVE) H Urine Ketones 1+ (NEGATIVE) H Urine Occult Blood Negative (NEGATIVE) Urine Nitrite Negative (NEGATIVE) Urine Bilirubin Negative (NEGATIVE) Urine Urobilinogen Normal MG/DL (0.0-1.0) Urine Leukocyte Esterase Negative (NEGATIVE) White Blood Count 6.6 K/UL (4.8-10.8) Red Blood Count 4.89 M/UL (4.20-5.40) Hemoglobin 12.7 G/DL (12.0-16.0) Hematocrit 41.8 % (37.0-47.0) Mean Corpuscular Volume 85 FL (80-99) Mean Corpuscular Hemoglobin 25.9 PG (27.0-31.0) L Mean Corpuscular Hemoglobin Concent 30.4 G/DL (32.0-36.0) L Red Cell Distribution Width 13.2 % (11.6-14.8) Platelet Count 253 K/UL (150-450) Mean Platelet Volume 6.5 FL (6.5-10.1) Neutrophils (%) (Auto) 54.3 % (45.0-75.0) Lymphocytes (%) (Auto) 31.6 % (20.0-45.0) Monocytes (%) (Auto) 8.8 % (1.0-10.0) Eosinophils (%) (Auto) 3.9 % (0.0-3.0) H Basophils (%) (Auto) 1.4 % (0.0-2.0) Sodium Level 137 MMOL/L (136-145) Potassium Level 3.9 MMOL/L (3.5-5.1) Chloride Level 101 MMOL/L (98-107) Carbon Dioxide Level 25 MMOL/L (21-32) Anion Gap 11 mmol/L (5-15) Blood Urea Nitrogen 9 mg/dL (7-18) Creatinine 0.8 MG/DL (0.55-1.30) Estimate Glomerular Filtration Rate > 60 mL/min (>60) Glucose Level 348 MG/DL (74-106) H Calcium Level 9.3 MG/DL (8.5-10.1) Magnesium Level 2.0 MG/DL (1.8-2.4) Total Bilirubin 0.4 MG/DL (0.2-1.0) Aspartate Amino Transferase (AST) 21 U/L (15-37) Alanine Aminotransferase (ALT) 35 U/L (12-78) Alkaline Phosphatase 139 U/L (46-116) H Total Protein 7.8 G/DL (6.4-8.2) Albumin 3.7 G/DL (3.4-5.0) Globulin 4.1 g/dL Albumin/Globulin Ratio 0.9 (1.0-2.7) L Acetone Level Negative (NEGATIVE) Arterial Blood pH 7.430 (7.350-7.450) Arterial Blood Partial Pressure CO2 36.1 mmHg (35.0-45.0) Arterial Blood Partial Pressure O2 64.0 mmHg (75.0-100.0) L Arterial Blood HCO3 23.7 mmol/L (22.0-26.0) Arterial Blood Oxygen Saturation 89.8 % (92.0-98.0) L Arterial Blood Base Excess 0 [place] Test N/a Last Vital Signs Date Time Temp Pulse Resp B/P (MAP) Pulse Ox O2 Delivery O2 Flow Rate FiO2 05/15/17 16:16 97.9 87 20 115/80 97 Room Air Preston Vogel M.D. May 15, 2017 17:07
[2017-05-15 17:12] LABS: APPEARANCE,URINE CLEAR; KETONES,URINE 1+ (NEGATIVE); LEUKOCYTE ESTERASE ,URINE NEGATIVE (NEGATIVE); NITRITE,URINE NEGATIVE (NEGATIVE); PH,URINE 6 (4.5-8.0); PROTEIN,URINE NEGATIVE (NEGATIVE); UROBILINOGEN,URINE NORMAL MG/DL (0.0-1.0)
[2017-05-15 17:20] LABS: BASOPHILS % (AUTO) 1.4 % (0.0-2.0); EOSINOPHILS % (AUTO) 3.9 % (0.0-3.0); LYMPHOCYTES % (AUTO) 31.6 % (20.0-45.0); MEAN CORPUSCULAR HEMOGLOBIN 25.9 PG (27.0-31.0); MEAN CORPUSCULAR HGB CONC 30.4 G/DL (32.0-36.0); MEAN CORPUSCULAR VOLUME 85 FL (80-99); MEAN PLATELET VOLUME 6.5 FL (6.5-10.1); MONOCYTES % (AUTO) 8.8 % (1.0-10.0); NEUTROPHILS % (AUTO) 54.3 % (45.0-75.0); PLATELET COUNT 253 K/UL (150-450); RED BLOOD COUNT 4.89 M/UL (4.20-5.40); RED CELL DISTRIBUTION WIDTH 13.2 % (11.6-14.8); WHITE BLOOD COUNT 6.6 K/UL (4.8-10.8)
[2017-05-15 17:28] LABS: ALANINE AMINOTRANSFERASE 35 U/L (12-78); ALBUMIN/GLOBULIN RATIO 0.9 (1.0-2.7); ANION GAP 11 mmol/L (5-15); ASPARTATE AMINO TRANSFERASE 21 U/L (15-37); CALCIUM 9.3 MG/DL (8.5-10.1); CARBON DIOXIDE 25 MMOL/L (21-32); CHLORIDE 101 MMOL/L (98-107); CREATININE 0.8 MG/DL (0.55-1.30); GLOMERULAR FILTRATION RATE > 60 mL/min (>60); POTASSIUM 3.9 MMOL/L (3.5-5.1); SODIUM 137 MMOL/L (136-145); TOTAL PROTEIN 7.8 G/DL (6.4-8.2)
[2017-05-15 18:55] VITALS: BP 108/68
[2017-05-15 19:10] VITALS: BP 108/68
--- NOTE | 2017-05-16 10:17 | Diagnostic Imaging Report ---
Indication: Chest pain Technique: One view of the chest Comparison: 08/27/2016 Findings: Lungs and pleural spaces are clear. Heart size is normal. No significant interim change Impression: No acute process
--- NOTE | 2017-05-16 16:38 | Cardiology Report ---
APPROVED REPORT EKG Measurement Heart [id number] Normal sinus rhythm Normal ECG
== END 2017-05-15 19:21 | disposition home or self-care (01) ==
LOC: EMR 17:23
DX: E11.65 Type 2 diabetes mellitus with hyperglycemia (principal); I10 Essential (primary) hypertension; J44.9 Chronic obstructive pulmonary disease, unspecified; E78.5 Hyperlipidemia, unspecified
CPT/HCPCS: 36415; 36600; 71010; 80053; 81003; 82009; 82803; 82962; 83735; 85025; 93005; 96360; 96361; 99284

== ENCOUNTER 2017-07-26 14:06 | Emergency (ER) | payer MEDICAID ==
[~2017-07-26] VITALS: Ht 157.5 cm; Wt 93.0 kg
[2017-07-26 14:10] VITALS: BP 125/80
[2017-07-26] MEDS ORDERED: TAMIFLU75 MG ORAL (14:21)
[2017-07-26] MEDS ORDERED: PROMETH-CODEIN 65 ML PO (14:21)
[2017-07-26] MEDS ORDERED: ALBUTEROL SULF8.5 GM INH (14:21)
[2017-07-26 14:27] VITALS: BP 112/80
--- NOTE | 2017-07-26 18:29 | Emergency Room Report ---
History of Present Illness General Chief Complaint: Flu Like Symptoms Source: Patient Present Illness HPI Patient presents emergency department today complaining cough and congestion. Patient states like she has asthma and has been coughing and short of breath. She states that she's had symptoms for a couple days associated fever. She denies any shortness breath he denies any leg pain leg swelling. Symptoms noted to be moderate to severe. Patient does have multiple comorbidities.No other modifying factors. No other associated signs and symptoms. No other complaints were noted. Allergies: Coded Allergies: No Known Allergies (Unverified , 04/29/12) Patient History Past Medical History: DM, HTN, COPD Past Surgical History: none Pertinent Family History: none Social History: Denies: smoking, alcohol use, drug use Reviewed Nursing Documentation: PMH: Agreed, PSxH: Agreed Nursing Documentation-PMH Hx Cardiac Problems: No Hx Hypertension: Yes Hx Pacemaker: No Hx Asthma: No Hx COPD: Yes Hx Diabetes: Yes - Type2 Hx Cancer: No Hx Gastrointestinal Problems: Yes - Gall stones Hx Dialysis: Yes - Hepatomegaly Hx Neurological Problems: No Hx Cerebrovascular Accident: No Hx Seizures: No Review of Systems All Other Systems: negative except mentioned in HPI Physical Exam Vital Signs Date Time Temp Pulse Resp B/P (MAP) Pulse Ox O2 Delivery O2 Flow Rate FiO2 07/26/17 14:10 99.0 113 20 125/80 98 Room Air Sp02 EP Interpretation: reviewed, normal General Appearance: alert, mild distress - week Head: atraumatic Eyes: bilateral eye normal inspection ENT: normal ENT inspection, hearing grossly normal, normal voice Neck: normal inspection, full range of motion, supple, no bony tend Respiratory: normal inspection, no respiratory distress, no retraction, decreased breath sounds, wheezing, expiration Cardiovascular #1: regular rate, rhythm, no edema Gastrointestinal: normal inspection, normal bowel sounds, non tender, soft, no guarding, no hernia Genitourinary: no CVA tenderness Musculoskeletal: normal inspection, back normal, normal range of motion Neurologic: normal inspection, alert, responsive, speech normal Psychiatric: normal inspection, judgement/insight normal, mood/affect normal Skin: normal inspection, normal color, no rash Medical Decision Making Diagnostic Impression: Primary Impression: Influenza-like symptoms ER Course Patient presents emergency department today complaining cough and congestion. Differential diagnoses include pneumonia, viral syndrome, influenza just name a few. Patient's exam is consistent with influenza. I felt the patient would benefit from cough syrup as well as albuterol and Tamiflu.Patient is advised to follow up with primary doctor in 2-3 days and return the emergency room for any worsening symptoms and as needed. Last Vital Signs Date Time Temp Pulse Resp B/P (MAP) Pulse Ox O2 Delivery O2 Flow Rate FiO2 07/26/17 14:27 105 18 112/80 98 Room Air 07/26/17 14:10 99.0 Status: improved Disposition: HOME, SELF-CARE Condition: Stable Scripts Albuterol Sulfate* (ALBUTEROL SULFATE MDI*) 8.5 Gm Hfa.aer.ad 2 PUFF INH Q4H Y for cough/wheezing, #1 EA 0 Refills Prov: AMEE CARTER M.D. 07/26/17 Promethazine HCl/Codeine (Prometh-Codein 6.25-10 mg/5 ml) 5 Ml Syrup 5 ML PO QID for 7 Days, ML Prov: AMEE CARTER M.D. 07/26/17 Oseltamivir Phosphate (Tamiflu) 75 Mg Capsule 75 MG ORAL TWICE A DAY for 5 Days, CAP Prov: AMEE CARTER M.D. 07/26/17 Referrals: [facility],REFERR[facility] (PCP) Patient Instructions: Influenza, Adult, [id number] AMEE CARTER M.D. Jul 26, 2017 18:29
== END 2017-07-26 14:30 | disposition home or self-care (01) ==
LOC: EMR 14:16
DX: J11.1 Influenza due to unidentified influenza virus with other respiratory manifestations (principal); I10 Essential (primary) hypertension; E11.9 Type 2 diabetes mellitus without complications; J44.9 Chronic obstructive pulmonary disease, unspecified
CPT/HCPCS: 99284

== ENCOUNTER 2017-08-03 18:49 | Emergency (ER) | payer MEDICAID ==
[~2017-08-03] VITALS: Ht 157.5 cm; Wt 108.9 kg
[~2017-08-03 18:49] MED LIST changes: +TAMIFLU75 MG ORAL
[2017-08-03 19:30] VITALS: BP 131/81
[2017-08-03] MEDS ORDERED: Norco 5mg/325mg tab ORAL ONE (20:45)
[2017-08-03] MEDS ORDERED: PROMETHAZINE-C118 M1 ORAL (20:47)
[2017-08-03] MEDS ORDERED: GUAIFENESIN1200 MG PO (20:47)
[2017-08-03] MEDS ORDERED: TESSALON PERLE100 MG ORAL (20:47)
--- NOTE | 2017-08-03 20:49 | Emergency Room Report ---
History of Present Illness General Chief Complaint: General Complaint Source: Patient, Medical Record Present Illness HPI 57-year-old female presents to the emergency department complaining of 10 out of 10 in severity lateral left foot pain status post inversion injury earlier this morning. Patient reports her pain is localized exacerbated upon weightbearing or walking. Patient also reports that she has continued cough symptoms and was unable to fill a prescription for Tamiflu. Patient denies fevers or chills she reports continued cough with mucus that she is unable to clear.Denies numbness tingling or loss of sensation or gross motor movements of the extremities, incontinence of bowel or bladder. Denies CP, Palpitations, LOC , AMS, dizziness, Claudication, Changes in Vision, Sensation, paresthesias, or a sudden severe headache. Allergies: Coded Allergies: No Known Allergies (Unverified , 04/29/12) Patient History Past Medical History: see triage record Past Surgical History: none Pertinent Family History: none Immunizations: UTD Reviewed Nursing Documentation: PMH: Agreed, PSxH: Agreed Nursing Documentation-PMH Past Medical History: No History, Except For Hx Cardiac Problems: No Hx Hypertension: Yes Hx Pacemaker: No Hx Asthma: No Hx COPD: Yes Hx Diabetes: Yes - Type2 Hx Cancer: No Hx Gastrointestinal Problems: Yes - Gall stones Hx Dialysis: Yes - Hepatomegaly Hx Neurological Problems: No Hx Cerebrovascular Accident: No Hx Seizures: No Review of Systems All Other Systems: negative except mentioned in HPI Physical Exam Vital Signs Date Time Temp Pulse Resp B/P (MAP) Pulse Ox O2 Delivery O2 Flow Rate FiO2 08/03/17 18:51 98.6 89 18 131/81 98 Room Air Sp02 EP Interpretation: reviewed, normal General Appearance: no apparent distress, alert, GCS 15, non-toxic Head: normocephalic, atraumatic Eyes: bilateral eye normal inspection, bilateral eye PERRL ENT: hearing grossly normal, normal voice Neck: full range of motion Respiratory: chest non-tender, lungs clear, normal breath sounds, speaking full sentences Cardiovascular #1: regular rate, rhythm, normal capillary refill Cardiovascular #2: 2+ dorsalis pedis (R), 2+ dorsalis pedis (L) Rectal: deferred Genitourinary: normal inspection Musculoskeletal: back normal, gait/station normal, normal range of motion, no calf tenderness, tender - TTP lateral left foot, mild swelling , no bruising or obvious deformity. pt. NVI. Neurologic: alert, oriented x3, responsive, motor strength/tone normal, sensory intact, speech normal, grossly normal Psychiatric: judgement/insight normal Skin: normal color, no rash, warm/dry, well hydrated Lymphatic: no adenopathy Medical Decision Making NICKI Vogel is my supervising Physician whom patient management has been discussed with. Diagnostic Impression: Primary Impression: Sprain of foot, left Qualified Codes: S93.602A - Unspecified sprain of left foot, initial encounter Additional Impressions: URI, acute Cough ER Course 57-year-old female presents to the emergency department complaining of 10 out of 10 in severity lateral left foot pain status post inversion injury earlier this morning. Patient reports her pain is localized exacerbated upon weightbearing or walking. Patient also reports that she has continued cough symptoms and was unable to fill a prescription for Tamiflu. Patient denies fevers or chills she reports continued cough with mucus that she is unable to clear.Denies numbness tingling or loss of sensation or gross motor movements of the extremities, incontinence of bowel or bladder. Denies CP, Palpitations, LOC , AMS, dizziness, Claudication, Changes in Vision, Sensation, paresthesias, or a sudden severe headache. Ddx considered but are not limited to Fracture, dislocation, contusion, Sprain/ Strain/Spasm, DVT, URI just to name a few. Vital signs: are WNL, pt. is afebrile H&PE are most consistent with musculoskeletal injury will perform imaging to r/ o fractures/dislocations., cough/URI - no evidence of acute bacterial infections or influenza. ORDERS: - X-ray Left foot 3 views - negative for obvious acute fx, Dislocation, or significant soft tissue injury, per preliminary read in ED, and signed by NICKI Hayes, my supervising physician has reviewed, and agrees with my interpretation. ED INTERVENTIONS: - I discussed with this patient that Tamiflu is unnecessary at this time as she is afebrile and I also explained that if not started within 72 hours of onset it will not be beneficial I also explained to her that he searches shown that Tamiflu for only short duration of symptoms by 1 day. --Cast/walking shoe applied to left foot by heat treat technician. Pt. remains neurovascularly intact. DISCHARGE: At this time pt. is stable for d/c to home. Will provide printed patient care instructions, and any necessary prescriptions. Care plan and follow up instructions have been discussed with the patient prior to discharge. Other X-Ray Diagnostic Results Other X-Ray Diagnostic Results : # of Views/Limited Vs Complete: 3 View Indication: Pain EP Interpretation: Yes PA Xray: Interpretation reviewed, by supervising MD, and agrees with findings. Interpretation: no dislocation, no soft tissue swelling, no fractures Impression: No acute disease - possible sub-acute avulsions fx of metatarsal vs degenerative changes. Acute fx of low suspicion. Electronically Signed by: Yuliya Hayes PA-C Last Vital Signs Date Time Temp Pulse Resp B/P (MAP) Pulse Ox O2 Delivery O2 Flow Rate FiO2 08/03/17 18:51 98.6 89 18 131/81 98 Room Air Disposition: HOME, SELF-CARE Condition: Stable Scripts Ibuprofen* (MOTRIN*) 600 Mg Tablet 600 MG ORAL THREE TIMES A DAY, #30 TAB 0 Refills Prov: Yuliya Hayes 08/03/17 Codeine/Promethazine Hcl* (PROMETHAZINE-CODEINE SYRUP*) 118 Ml Syrup 5 ML ORAL Q6H Y for For Cough, #118 ML 0 Refills Prov: Yuliya Hayes 08/03/17 Benzonatate* (TESSALON PERLE*) 100 Mg Capsule 100 MG ORAL THREE TIMES A DAY, #20 PERLE Prov: Yuliya Hayes.A. 08/03/17 Guaifenesin (Guaifenesin) 1,200 Mg Tab.er.12h 1200 MG PO BID, #20 TAB Prov: Yuliya Hayes 08/03/17 Patient Instructions: Cough, Adult, [id number], Foot Sprain Additional Instructions: Take medications as directed. Follow up with an ALTERATIONS SEWER in 3-5 days, even if your symptoms have resolved. --Please review list of primary care clinics, if you do not already have a primary care provider who can give you an Orthopedic Referral. Return sooner to ED if new symptoms occur, or current symptoms become worse. Do not drink alcohol, drive, or operate heavy machinery while taking Cough syrup as this may cause drowsiness. - Please note that this Emergency Department Report was dictated using [employer] interpreter technology software, occasionally this can lead to erroneous entry secondary to interpretation by the dictation equipment. Yuliya Hayes Aug 03, 2017 20:49
[2017-08-03] MEDS ORDERED: IBUPROFEN600 MG ORAL (20:55)
[2017-08-03 21:00] VITALS: BP 131/81
--- NOTE | 2017-08-04 10:51 | Diagnostic Imaging Report ---
Indication: Pain Technique: XRAY Foot Complete L Comparison: 10/18/2013 Findings: There is no acute fracture or dislocation. Dorsal and plantar calcaneal enthesophytes are again noted. No focal soft tissue abnormality is appreciated. No radiopaque foreign body seen. Impression: No acute fracture or dislocation. Calcaneal enthesophytes. No significant interval change compared to 10/18/2013.
== END 2017-08-03 21:00 | disposition home or self-care (01) ==
LOC: EMR 19:10
DX: S93.602A Unspecified sprain of left foot, initial encounter (principal); X50.9XXA Other and unspecified overexertion or strenuous movements or postures, initial encounter; Y92.9 Unspecified place or not applicable; J06.9 Acute upper respiratory infection, unspecified; I10 Essential (primary) hypertension; J44.9 Chronic obstructive pulmonary disease, unspecified
CPT/HCPCS: 29540; 99284

== ENCOUNTER 2018-08-25 17:49 | Emergency (ER) | payer MEDICAID ==
[~2018-08-25] VITALS: Ht 154.9 cm; Wt 113.4 kg
[~2018-08-25 17:49] MED LIST changes: +GUAIFENESIN1200 MG PO; +PROMETHAZINE-C118 M1 ORAL; +TESSALON PERLE100 MG ORAL
[2018-08-25 18:05] VITALS: BP 128/80
--- NOTE | 2018-08-25 18:05 | NUR ---
ED Nurse Note: PT walked in c/o left buttock pain, pt states pain started on left calf and went to left buttock. denies injury or any trauma or fall. pt AA&ox4, gcs=15, skin warm and dry, resp even and unlabored, -n/v/d, ambulates w/ steady gait, will cont monitor.
[2018-08-25] MEDS ORDERED: Acetaminophen 500mg (ES) tab ORAL ONE (18:45)
--- NOTE | 2018-08-25 19:01 | NUR ---
ED Nurse Note: PT OFF TO ULTRASOUND
[2018-08-25] MEDS ORDERED: TYLENOL EXTRA500 MG ORAL (19:38)
[2018-08-25] MEDS ORDERED: LIDOCAINE700 M1 TP (19:38)
[2018-08-25] MEDS ORDERED: CLOTRIMAZOLE15 GM TOPIC (19:43)
--- NOTE | 2018-08-25 19:44 | Emergency Room Report ---
History of Present Illness General Chief Complaint: Pain Source: Patient Present Illness HPI 58-year-old female patient presents the ER complaining of left lower extremity pain for the past 3 days. Reports pain symptoms began behind her left knee and has since radiated up to her left buttock. Denies acute injury or trauma. Reports history of sciatica. Reports history of diabetes. Denies history of blood clots. Denies taking any blood thinner medications. Denies history of recent travel. Denies recent. Immobilization. Denies fever, chest pain, shortness of breath. Denies other aggravating or relieving factors. Denies back pain. Allergies: Coded Allergies: No Known Allergies (Unverified , 08/25/18) Patient History Past Medical History: see triage record Reviewed Nursing Documentation: PMH: Agreed; PSxH: Agreed Nursing Documentation-PMH Past Medical History: No History, Except For Hx Cardiac Problems: No Hx Hypertension: Yes Hx Pacemaker: No Hx Asthma: No Hx COPD: No Hx Diabetes: Yes - Type2 Hx Cancer: No Hx Gastrointestinal Problems: Yes - Gall stones Hx Dialysis: Yes - Hepatomegaly Hx Neurological Problems: No Hx Cerebrovascular Accident: No Hx Seizures: No Review of Systems All Other Systems: negative except mentioned in HPI Physical Exam Vital Signs Date Time Temp Pulse Resp B/P (MAP) Pulse Ox O2 Delivery O2 Flow Rate FiO2 08/25/18 17:59 98.4 88 15 132/83 98 Room Air Sp02 EP Interpretation: reviewed, normal General Appearance: well appearing, no apparent distress, alert, GCS 15, non- toxic Head: normocephalic, atraumatic Eyes: bilateral eye normal inspection, bilateral eye PERRL ENT: hearing grossly normal, normal pharynx, no angioedema, normal voice, uvula midline, moist mucus membranes Neck: full range of motion Respiratory: lungs clear, normal breath sounds, no rhonchi, no respiratory distress, no accessory muscle use, no wheezing, speaking full sentences Cardiovascular #1: regular rate, rhythm, no edema Musculoskeletal: back normal, digits/nails normal, gait/station normal, normal range of motion, non-tender, no calf tenderness, Sadie's Sign negative, other - no erythema or edema of buttock, no palpable mass Neurologic: alert, oriented x3, responsive, motor strength/tone normal, SLR negative, sensory intact Skin: no rash, other - Red beefy patch and skin folds of lower abdomen proximal to pelvis, scalloped borders Medical Decision Making PA Attestation Dr. Hu is my supervising Physician whom patient management has been discussed with. Diagnostic Impression: Primary Impression: Sciatic leg pain Additional Impression: Intertrigo ER Course Pt. presents to the ED c/o left posterior knee pain and left buttock pain. Ddx considered but are not limited to DVT, bursitis, popliteal cyst, sciatica, cellulitis, intertrigo, eczema, CHF exacerbation. Denies chest pain, SOB, lungs clear, no hx of CHF, low suspicion for CHF, does not require workup at this time. Vital signs: are WNL, pt. is afebrile ER COURSE: Denies acute injury or trauma, low suspicion for fracture, does not require xray at this time. US negative for DVT. Likely sciatica pain. Take Tylenol. Followup with PCP. Advised patient on RICE: rest, ice, compression, elevation. On repeat exam patient complaining of rash in the lower abdomen folds of her skin. Consistent with intertrigo. Will provide patient with topical antifungal cream. Advised to follow-up with boatbuilder apprentice wood. DISCHARGE: At this time pt is stable for d/c to home. Patient is resting comfortably, in no acute distress, nontoxic appearing, talking without difficulty. Patient to take medications as instructed Will provide with patient care instructions and any necessary prescriptions. Care plan and follow-up instructions provided. Patient instructed to follow-up with primary care provider in 3 - 5 days. Patient questions asked and answered. Patient reports understanding and agreement to treatment plan. ER precautions given. Patient instructed to return to ER immediately for any new or worsening of symptoms including but not limited to increasing SOB, persistent fever, chest pain, intractable vomiting. - Please note that this Emergency Department Report was dictated using [employer] education coordinator technology software, occasionally this can lead to erroneous entry secondary to interpretation by the dictation equipment. CT/MRI/US Diagnostic Results CT/MRI/US Diagnostic Results : Imaging Test Ordered: Left lower extremitiy venous duplex US Impression negative for DVT Last Vital Signs Date Time Temp Pulse Resp B/P (MAP) Pulse Ox O2 Delivery O2 Flow Rate FiO2 08/25/18 18:05 98.4 86 16 128/80 98 Room Air Disposition: HOME, SELF-CARE Condition: Stable Scripts Clotrimazole* (LOTRIMIN*) 15 Gm Cream..g. 1 APPLIC TOPIC TWICE A DAY for 10 Days, #15 GM Prov: Harsh Dodd 08/25/18 Acetaminophen* (TYLENOL EXTRA STRENGTH*) 500 Mg Tablet 500 MG ORAL Q8H PRN for Prn Headache/Temp > 101, #30 TAB 0 Refills Prov: Harsh Dodd 08/25/18 Lidocaine (Lidocaine) 1 Each Adh..patch 5 % TP DAILY for 7 Days, #7 PATCH Prov: Harsh Dodd 08/25/18 Patient Instructions: Sciatica, [id number] Additional Instructions: Patient instructed to follow up with primary care provider 3-5 and discuss further referral and imaging at that time. Patient instructed on rest, ice and heat. Keep skin clean and dry. Take medications as directed. Patient questions asked and answered. ER precautions given, patient instructed to return to ER immediately for any new or worsening of symptoms. [facility] [address] [facility] [address] [facility], [id number] [email or web address] For itchy symptoms taken Benadryl or Claritin. SE Benadryl drowsiness, do not take prior to drinking, driving, operating heavy machinery. Take Claritin during the day and Benadryl at night for itching symptoms. [facility] [place] [facility] Harsh Dodd Aug 25, 2018 19:44
[2018-08-25 19:50] VITALS: BP 130/68
--- NOTE | 2018-08-25 19:55 | NUR ---
ED Nurse Note: pt cleared to d/c per ER provider, pt discharge instruction provided w/prescription, pt advised to follow up with pcp or return to ed if s/s worsen or new s/s develop, pt education done via discussion and hand out, wristband removed, pt verbalized understanding and agrees with plan. pt vss, ambulatory w/ steady gait, resp even and unlabored, airway intact, all belongings left with pt.
--- NOTE | 2018-08-26 12:53 | Diagnostic Imaging Report ---
Indication: Left lower extremity pain and swelling. Technique: Duplex Doppler imaging performed from the left common femoral vein to the popliteal vein. FINDINGS: Normal compressibility demonstrated from the common femoral vein to the popliteal vein. Respiratory phasicity and good augmentation demonstrated on waveform analysis. There is no evidence of thrombosis. IMPRESSION: No evidence of deep venous thrombosis within the left lower extremity.
== END 2018-08-25 19:55 | disposition home or self-care (01) ==
LOC: EMR 18:41
DX: M54.32 Sciatica, left side (principal); L30.4 Erythema intertrigo; I10 Essential (primary) hypertension; E11.9 Type 2 diabetes mellitus without complications
CPT/HCPCS: 93971; 99284

== ENCOUNTER 2018-10-14 16:04 | Emergency (ER) | payer MEDICAID ==
[~2018-10-14] VITALS: Ht 156.2 cm; Wt 113.4 kg
[~2018-10-14 16:04] MED LIST changes: +CLOTRIMAZOLE15 GM TOPIC; +LIDOCAINE700 M1 TP; +TYLENOL EXTRA500 MG ORAL
[2018-10-14] MEDS ORDERED: LOSARTAN POTASS25 MG ORAL (16:11)
[2018-10-14] MEDS ORDERED: GLIMEPIRIDE4 MG ORAL (16:11)
[2018-10-14] MEDS ORDERED: NESINA12.5 MG PO (16:11)
[2018-10-14] MEDS ORDERED: HYDROcodone/Acetamin 5/325 tab ORAL ONE (16:45)
--- NOTE | 2018-10-14 16:54 | NUR ---
ED Nurse Note:xray being done.
--- NOTE | 2018-10-14 17:07 | NUR ---
ED Nurse Note:pt relates having pain to right middle finger since yest no injury that radiates up to rt. elbow. pending xray results. good cms distally
--- NOTE | 2018-10-14 17:41 | Emergency Room Report ---
History of Present Illness General Chief Complaint: Upper Extremity Injury Source: Medical Record Present Illness HPI 58-year-old female presents to the emergency department complaining of radiating pain in the right hand primarily in the right middle finger with paresthesias in the right fourth and fifth digits since yesterday. Patient reports symptoms to be progressive she states movement of her wrist or bumping the volar aspect of her wrist exacerbates her symptoms. Patient reports history of carpal tunnel syndrome in the past she denies repetitive daily work. Patient denies open wounds, erythema, warmth or discoloration of the affected extremities. Patient does report a history of diabetes she denies trauma or fall. Pt. reports stiffness in the last three digits of the right hand. She is right hand dominant. Denies hx of arthritis. Allergies: Coded Allergies: No Known Allergies (Unverified , 08/25/18) Patient History Past Medical History: see triage record Past Surgical History: none Pertinent Family History: none Last Menstrual Period: menopause Now: No Reviewed Nursing Documentation: PMH: Agreed; PSxH: Agreed Nursing Documentation-PMH Past Medical History: No History, Except For Hx Cardiac Problems: No Hx Hypertension: Yes Hx Pacemaker: No Hx Asthma: No Hx COPD: No Hx Diabetes: Yes - Type2 Hx Cancer: No Hx Gastrointestinal Problems: Yes - Gall stones Hx Dialysis: Yes - Hepatomegaly Hx Neurological Problems: No Hx Cerebrovascular Accident: No Hx Seizures: No Review of Systems All Other Systems: negative except mentioned in HPI Physical Exam Vital Signs Date Time Temp Pulse Resp B/P (MAP) Pulse Ox O2 Delivery O2 Flow Rate FiO2 10/14/18 16:07 99.0 88 18 138/84 98 Room Air Sp02 EP Interpretation: reviewed, normal General Appearance: no apparent distress, alert, GCS 15, non-toxic Head: normocephalic, atraumatic Eyes: bilateral eye normal inspection, bilateral eye PERRL ENT: hearing grossly normal, normal voice Neck: full range of motion Respiratory: lungs clear, normal breath sounds, speaking full sentences Cardiovascular #1: regular rate, rhythm, no edema, normal capillary refill Cardiovascular #2: 2+ radial (R), 2+ radial (L) Musculoskeletal: back normal, gait/station normal, normal range of motion, tender - TTP to the volar right wrist, and middle finger, pt. has severe exacerbation with tappin on the radial nerve in the wrist. Neurologic: alert, oriented x3, responsive, motor strength/tone normal, sensory intact, speech normal, grossly normal Psychiatric: judgement/insight normal Skin: normal color, no rash, warm/dry, well hydrated Lymphatic: no adenopathy Medical Decision Making NICKI Vogel is my supervising Physician whom patient management has been discussed with. Diagnostic Impression: Primary Impression: Carpal tunnel syndrome of right wrist Additional Impressions: Hand pain, right Hand paresthesia Qualified Codes: R20.2 - Paresthesia of skin ER Course 58-year-old female presents to the emergency department complaining of radiating pain in the right hand primarily in the right middle finger with paresthesias in the right fourth and fifth digits since yesterday. Patient reports symptoms to be progressive she states movement of her wrist or bumping the volar aspect of her wrist exacerbates her symptoms. Patient reports history of carpal tunnel syndrome in the past she denies repetitive daily work. Patient denies open wounds, erythema, warmth or discoloration of the affected extremities. Patient does report a history of diabetes she denies trauma or fall. Pt. reports stiffness in the last three digits of the right hand. She is right hand dominant. Denies hx of arthritis. Ddx considered but are not limited to Fracture, dislocation, contusion, Sprain/ Strain/Spasm, Epidural abscess, Neoplastic mets. Vital signs: are WNL, pt. is afebrile H&PE are most consistent with musculoskeletal injury will perform imaging to r/ o fractures/dislocations. ORDERS: - X-ray [ ] - negative for fx, Dislocation, or significant soft tissue injury, per preliminary read in ED, and signed by NICKI Hayes, my supervising physician has reviewed, and agrees with my interpretation. ED INTERVENTIONS: -[place] PO - Right wrist Splint applied by electrical electronics technician. Pt. remains neurovascularly intact. DISCHARGE: At this time pt. is stable for d/c to home. Will provide printed patient care instructions, and any necessary prescriptions. Care plan and follow up instructions have been discussed with the patient prior to discharge. Other X-Ray Diagnostic Results Other X-Ray Diagnostic Results : X-Ray ordered: Right hand # of Views/Limited Vs Complete: 3 View Indication: Pain EP Interpretation: Yes NICKI Xray: Interpretation reviewed, by supervising MD, and agrees with findings. Interpretation: no dislocation, no soft tissue swelling, no fractures Impression: No acute disease Electronically Signed by: Yuliya Hayes PA-C Last Vital Signs Date Time Temp Pulse Resp B/P (MAP) Pulse Ox O2 Delivery O2 Flow Rate FiO2 10/14/18 16:07 99.0 88 18 138/84 98 Room Air Disposition: HOME, SELF-CARE Condition: Stable Scripts Naproxen* (NAPROXEN*) 500 Mg Tablet.dr 500 MG ORAL TWICE A DAY for 5 Days, #10 TAB Prov: Yuliya Hayes 10/14/18 Diclofenac Sodium (VOLTAREN) 100 Gm Gel..gram. 1 APPLIC TP Q6HR, #100 GM Prov: Yuliya Hayes 10/14/18 Lidocaine (Lidocaine) 15 Gm Cream..g. 1 APPLIC TP Q6HR, #15 GM Prov: Yuliya Hayes 10/14/18 Patient Instructions: Carpal Tunnel Syndrome, [id number], Wrist Pain, Easy-to -Read Additional Instructions: Take medications as directed. Follow up with a Primary Care Provider in 3-5 days, even if your symptoms have resolved. --Please review list of primary care clinics, if you do not already have a primary care provider Return sooner to ED if new symptoms occur, or current symptoms become worse. - Please note that this Emergency Department Report was dictated using [employer] motel receptionist technology software, occasionally this can lead to erroneous entry secondary to interpretation by the dictation equipment. Yuliya Hayes Oct 14, 2018 17:41
--- NOTE | 2018-10-14 17:54 | NUR ---
ED Nurse Note:splint applied by adult education professional. reeval by juan brown
[2018-10-14 18:02] VITALS: BP 129/87
[2018-10-14] MEDS ORDERED: NAPROXEN500 M1 ORAL (18:09)
[2018-10-14] MEDS ORDERED: LIDOCAINE15 GM TP (18:09)
[2018-10-14] MEDS ORDERED: VOLTAREN100 G1 TP (18:09)
--- NOTE | 2018-10-14 18:25 | NUR ---
ED Nurse Note:pt given dc aci and script. pt states she feels better. aware and agrees to fu plan wrist splint intact good cms. pt waiting for ride in ed kenzie [email or web address]
[2018-10-14 18:26] VITALS: BP 129/87
--- NOTE | 2018-10-15 11:27 | Diagnostic Imaging Report ---
Indication: Right hand pain Findings: 3 views of the right hand were obtained. Normal bony mineralization and alignment are demonstrated. No acute fractures, erosions, or periosteal reaction are seen. Marginal osteophytes noted throughout the hand consistent with arthrosis. Soft tissues are unremarkable. Impression: No acute findings.
== END 2018-10-14 18:28 | disposition home or self-care (01) ==
LOC: EMR 17:18
DX: G56.01 Carpal tunnel syndrome, right upper limb (principal); E11.9 Type 2 diabetes mellitus without complications; I10 Essential (primary) hypertension
CPT/HCPCS: 29125; 99283

== ENCOUNTER 2019-05-10 18:48 | Emergency (ER) | payer MEDICAID ==
[~2019-05-10] VITALS: Ht 154.9 cm; Wt 101.6 kg
[~2019-05-10 18:48] MED LIST changes: +GLIMEPIRIDE4 MG ORAL; +LIDOCAINE15 GM TP; +LOSARTAN POTASS25 MG ORAL; +NAPROXEN500 M1 ORAL; +NESINA12.5 MG PO; +VOLTAREN100 G1 TP
--- NOTE | 2019-05-10 19:18 | NUR ---
ED Nurse Note: pt stated "I will just go see my pcp tomorrow morning." unable to assess vs prior to go. pt ambulated out with steady gait.
[2019-05-10 19:19] VITALS: BP 116/79
--- NOTE | 2019-05-10 20:55 | Emergency Room Report ---
History of Present Illness General Chief Complaint: Lower Extremity Injury Source: Patient Present Illness HPI 59-year-old children with unknown past medical history was triaged today to be seen right foot after injury however after waiting 15 minutes patient decided to go home and follow-up with primary care provider instead patient left before being seen. Allergies: Coded Allergies: No Known Allergies (Unverified , 08/25/18) Patient History Past Medical History: see triage record Past Surgical History: none Pertinent Family History: none Now: No Reviewed Nursing Documentation: PMH: Agreed; PSxH: Agreed Nursing Documentation-PMH Past Medical History: No History, Except For Hx Cardiac Problems: No Hx Hypertension: Yes Hx Pacemaker: No Hx Asthma: No Hx COPD: No Hx Diabetes: Yes - Type2 Hx Cancer: No Hx Gastrointestinal Problems: Yes - Gall stones Hx Dialysis: Yes - Hepatomegaly Hx Neurological Problems: No Hx Cerebrovascular Accident: No Hx Seizures: No Review of Systems All Other Systems: negative except mentioned in HPI Physical Exam Vital Signs Date Time Temp Pulse Resp B/P (MAP) Pulse Ox O2 Delivery O2 Flow Rate FiO2 05/10/19 19:03 98.4 85 17 116/79 (91) 95 Room Air Sp02 EP Interpretation: reviewed, normal General Appearance: well appearing, no apparent distress Neurologic: alert, normal gait Other Organ Systems no physical exam was done. pt left before being seen Medical Decision Making PA Attestation All my diagnosis and treatment plans were reviewed ad discussed with my supervising physician Dr. Hu Diagnostic Impression: Primary Impression: Patient left without being seen ER Course 59-year-old children with unknown past medical history was triaged today to be seen right foot after injury however after waiting 15 minutes patient decided to go home and follow-up with primary care provider instead patient left before being seen. Ddx considered but are not limited to: foot fracture, foot sprain, foot contusion, foot strain Vital signs: are WNL, pt. is afebrile H&PE are most consistent with: Patient left without being seen ORDERS: foot Xray which was not conducted ED INTERVENTIONS: None required at this time. Patient left without being seen, stable at time of discharge Last Vital Signs Date Time Temp Pulse Resp B/P (MAP) Pulse Ox O2 Delivery O2 Flow Rate FiO2 05/10/19 19:03 98.4 85 17 116/79 (91) 95 Room Air Disposition: LEFT W/OUT BEING SEEN Condition: Stable Kashmir Guerra May 10, 2019 20:55
== END 2019-05-10 19:19 | disposition left against medical advice (07) ==
LOC: EMR 19:00
DX: Z53.21 Procedure and treatment not carried out due to patient leaving prior to being seen by health care provider (principal)

== ENCOUNTER 2019-05-21 18:11 | Emergency (ER) | payer MEDICAID ==
[~2019-05-21] VITALS: Ht 157.5 cm; Wt 97.5 kg
[2019-05-21 18:50] VITALS: BP 125/76
--- NOTE | 2019-05-21 18:50 | NUR ---
ED Nurse Note: Patient was brought in to ER via wheelchair due to localized pain in back of left leg. patient states that she fell last night in the dark parking lot because of uneven ground. Per Patient, she tripped and lost balance, and fell on her hands and knees. Denies hitting head. Patient states she fell in the same spot 4 days ago. Patient denies any changes in vision, n/v, SOB. Patient on bus monitor. VSS.
--- NOTE | 2019-05-21 19:06 | NUR ---
ED Nurse Note: Received report from Monik BILL.
--- NOTE | 2019-05-21 19:58 | Emergency Room Report ---
History of Present Illness General Chief Complaint: Lower Back Pain or Injury Source: Patient Present Illness HPI History of left tib-fib repair with plates and screws several years ago after a fall. Mechanical fall yesterday on loose gravel. Fell forward onto her left knee. Abrasions over the wrist. Unknown last tetanus. Moderate pain. Can no longer ambulate. Notes swelling. Pain around the left knee. No numbness or tingling. No injury to the ankle or hip or back. No head injury or loss of consciousness. Disclaimer: Please note that this report is being documented using [employer] technology. This can lead to erroneous entry secondary to incorrect interpretation by the dictating instrument. HPI: 59-year-old female with a history of operative tib-fib repair, diabetes on insulin presents for evaluation of left leg pain. Patient had a mechanical fall from standing falling forward onto her wrists and knees yesterday on some loose gravel. There is no head injury or loss of consciousness. She is complaining of pain over the left proximal tibia and tibia as well as the left knee. Denies significant swelling. There is no skin breakdown. She fell onto her hands for but denies any pain in the wrists or hands or elbows or shoulders. She did sustain some abrasions over the left knee and over the wrist as well. Cannot recall last tetanus. PMH: Diabetes PSH: ORIF left tib-fib Allergies: Denies Social Hx: Denies Allergies: Coded Allergies: No Known Allergies (Unverified , 08/25/18) Patient History Last Menstrual Period: no period Nursing Documentation-PMH Past Medical History: No History, Except For Hx Cardiac Problems: No Hx Hypertension: Yes Hx Pacemaker: No Hx Asthma: No Hx COPD: No Hx Diabetes: Yes Hx Cancer: No Hx Gastrointestinal Problems: Yes - Gall stones Hx Dialysis: Yes - Hepatomegaly Hx Neurological Problems: No Hx Cerebrovascular Accident: No Hx Seizures: No Review of Systems All Other Systems: negative except mentioned in HPI Physical Exam Vital Signs Date Time Temp Pulse Resp B/P (MAP) Pulse Ox O2 Delivery O2 Flow Rate FiO2 05/21/19 18:28 98.1 99 19 132/80 (97) 100 Room Air General: Awake and alert, no acute distress HEENT: NC/AT. EOMI. Resp: Normal work of breathing Skin: Intact. No abrasions, laceration or rash over the exposed skin. Surgical scar of the left lower extremity are clean dry and intact and well- healed MSK: Normal tone and bulk. Moving all extremities. No obvious deformity. No effusion, no overlying erythema, skin breakdown. There is tenderness over the patella and over the proximal tibia and fibula without obvious deformity. Joint is stable on varus and valgus testing. No laxity on Meghna test. Neuro: Awake and alert. Mentating appropriately. Sensation is intact over the lower extremities bilaterally. Medical Decision Making Diagnostic Impression: Primary Impression: Multiple leg contusions ER Course 59-year-old female presents for evaluation of left knee pain after a mechanical fall yesterday. Will obtain x-rays of the left knee and the left tib-fib given the patient's surgical history to make sure the hardware still in place and there is no periprosthetic fracture. Will give pain medication and update tetanus. Other X-Ray Diagnostic Results Other X-Ray Diagnostic Results #1: X-Ray ordered: Left knee # of Views/Limited Vs Complete: Complete Indication: Pain EP Interpretation: Yes Interpretation: no dislocation, no soft tissue swelling, no fractures Impression: Other - No periprosthetic fracture or other deformity Electronically Signed by: Electronically signed by Dr. Khanh Rascon Other X-Ray Diagnostic Results #2: X-Ray ordered: Left tib-fib # of Views/Limited Vs Complete: 2 View Indication: Pain EP Interpretation: Yes Interpretation: no dislocation, no soft tissue swelling, no fractures Impression: Other - No periprosthetic fracture appreciated. No other deformity appreciated Electronically Signed by: Electronically signed by Dr. Khanh Rascon Reevaluation Time: 21:15 Last Vital Signs Date Time Temp Pulse Resp B/P (MAP) Pulse Ox O2 Delivery O2 Flow Rate FiO2 05/21/19 18:50 97.8 96 16 125/76 100 Room Air Reevaluation Impression No evidence of fracture on x-ray. The patient is feeling better after receiving pain medication. Tetanus was updated. She will be discharged home with crutches and she can follow-up with her PMD and orthopedic surgery if needed. Discussed reasons to return to the emergency department. She understands and agrees with treatment plan. Disposition: HOME, SELF-CARE Condition: Stable Scripts Acetaminophen* (ACETAMINOPHEN 325MG TABLET*) 325 Mg Tablet 650 MG ORAL Q6H PRN for For Pain for 5 Days, #30 TAB Prov: Khanh Rascon MD 05/21/19 Ibuprofen* (MOTRIN*) 600 Mg Tablet 600 MG ORAL Q8H PRN for For Pain, #30 TAB 0 Refills Prov: Khanh Rascon MD 05/21/19 Khanh Rascon MD May 21, 2019 19:58
[2019-05-21] MEDS ORDERED: Tetanus/Diptheria/Pertussis IM ONE (20:00)
[2019-05-21] MEDS ORDERED: Morphine Sulfate 2mg/ml Inj(IV/IM USE ONLY) IM ONE (20:00)
--- NOTE | 2019-05-21 20:04 | NUR ---
ED Nurse Note: Xray at bedside.
--- NOTE | 2019-05-21 20:22 | Diagnostic Imaging Report ---
Indication: Left leg pain Technique: 2 views of the left tibia and fibula Comparison: none Findings: Surgical hardware is seen reducing old healed proximal tibial fracture. No acute fractures. No dislocations. No radiopaque foreign body otherwise. Impression: No acute bony trauma
--- NOTE | 2019-05-21 20:23 | Diagnostic Imaging Report ---
Indication: Left knee pain Technique: 3 views of the left knee Comparison: None Findings: No acute fractures. No dislocations. There is slight degenerative remodeling of the lateral tibial plateau. Surgical hardware is seen reducing old healed proximal tibial fracture Impression: Acute bony trauma Postsurgical and posttraumatic changes, as described Mild degenerative changes
[2019-05-21 21:00] VITALS: BP 127/81
[2019-05-21] MEDS ORDERED: ACETAMINOPHEN325 M1 ORAL (21:06)
[2019-05-21] MEDS ORDERED: IBUPROFEN600 MG ORAL (21:06)
[2019-05-21 21:40] VITALS: BP 127/81
--- NOTE | 2019-05-21 21:40 | NUR ---
ED Nurse Note: Pt cleared by ERMD for discharge. DC instructions/prescription was given and explained to pt and verbalized understanding of teachings. All medical deviecs such as ID band removed. Pt is AAO x4, ambulatory and left with all personal belongings.
== END 2019-05-21 22:20 | disposition home or self-care (01) ==
LOC: EMR 22:17
DX: S80.12XA Contusion of left lower leg, initial encounter (principal); E11.9 Type 2 diabetes mellitus without complications; Z79.4 Long term (current) use of insulin; S80.212A Abrasion, left knee, initial encounter; S60.812A Abrasion of left wrist, initial encounter; I10 Essential (primary) hypertension; Z23 Encounter for immunization; W01.0XXA Fall on same level from slipping, tripping and stumbling without subsequent striking against object, initial encounter; Y92.9 Unspecified place or not applicable
CPT/HCPCS: 73562; 73590; 90471; 90715; 96372; J2270; Z7502; 99284

== ENCOUNTER 2020-08-10 14:53 | Emergency (ER) | payer MEDICAID ==
[~2020-08-10] VITALS: Ht 157.5 cm; Wt 95.3 kg
[~2020-08-10 14:53] MED LIST changes: +ACETAMINOPHEN325 M1 ORAL
--- NOTE | 2020-08-10 15:10 | NUR ---
ED Nurse Note: Pt walked in from home c/o right groin pain x 1 week. Denies n/v/d. Respirations even and unlabored on room air. Vitals stable as documented. A+Ox4, speaking in complete sentences.
[2020-08-10 15:15] VITALS: BP 131/84
[2020-08-10] MEDS ORDERED: Omnipaque-300 100ml vial INJ PRN (15:15)
--- NOTE | 2020-08-10 15:47 | Emergency Room Report ---
History of Present Illness General Chief Complaint: Pain Source: Patient, Medical Record Present Illness HPI This patient states that he traveled to [place] during the holiday in June of last year, approximately 1 month ago. She states that at that time she had been drinking a lot of alcohol and doing a lot of "partying." She states that she noted at that time that she started to develop pain in her right groin area. She states that the pain has continued since that time. She did return to [place] about a week ago from [place]. She states the pain continues in the right groin. She states that pain is much worse with any type of movement. Especially standing up to go to the restroom. She states that she is resting that she does not have any pain. She does not recall any injury or fall or any initiating factors associated with the pain in her right groin. She states that she called her niece who is in the medical field and her niece was concerned that given the location on the right side of the abdomen she could have liver problems. The patient states she is primarily worried about her liver. She is concerned because she was drinking a lot of alcohol during the holidays. She states since she has been in [place] she has not been drinking. She states that back in 1998 she was told she had "liver problems." She denies nausea or vomiting, chest pain or shortness of breath, dysuria or hematuria. She states that since she is lying flat at this time she has no pain. She also states that she is concerned about coming into contact with COVID-19. She states that 2 of her family members that she was in contact with have tested positive. She has no symptoms of COVID-19. She denies fever or chills. She denies cough or congestion. She denies chest pain or shortness of breath. She is requesting COVID-19 testing. She has no other complaints. Allergies: Coded Allergies: No Known Allergies (Unverified , 08/25/18) COVID-19 Screening Contact w/high risk pt: No Experienced COVID-19 symptoms?: No COVID-19 Testing performed CIRCULATION TENDER: No Patient History Past Medical History: see triage record, DM, HTN Social History: Reports: alcohol use; Denies: smoking, drug use Reviewed Nursing Documentation: PMH: Agreed; PSxH: Agreed Nursing Documentation-PMH Past Medical History: No History, Except For Hx Cardiac Problems: No Hx Hypertension: Yes Hx Pacemaker: No Hx Asthma: No Hx COPD: No Hx Diabetes: Yes Hx Cancer: No Hx Gastrointestinal Problems: Yes - Gall stones Hx Dialysis: Yes - Hepatomegaly Hx Neurological Problems: No Hx Cerebrovascular Accident: No Hx Seizures: No Review of Systems All Other Systems: negative except mentioned in HPI Physical Exam Vital Signs Date Time Temp Pulse Resp B/P (MAP) Pulse Ox O2 Delivery O2 Flow Rate FiO2 08/10/20 14:59 98.6 86 20 126/87 (100) 98 Room Air Sp02 EP Interpretation: reviewed, normal General Appearance: no apparent distress, alert, GCS 15, non-toxic Head: normocephalic, atraumatic Eyes: bilateral eye normal inspection, bilateral eye PERRL ENT: hearing grossly normal, normal pharynx, no angioedema, normal voice Neck: normal inspection, full range of motion, supple/symm/no masses Respiratory: chest non-tender, lungs clear, normal breath sounds, no respiratory distress, no retraction, no accessory muscle use, speaking full sentences Cardiovascular #1: regular rate, rhythm, no edema Gastrointestinal: normal bowel sounds, soft, non-distended, no guarding, no rebound, tenderness - TTP along the inferior aspect of the Rectus abdominus m. at the location of the R. inguinal ligament. Rectal: deferred Genitourinary: normal inspection, no CVA tenderness Musculoskeletal: back normal, normal range of motion, non-tender, other - antalgic gait secondary to pain in R. groin. Neurologic: alert, motor strength/tone normal, oriented x3, sensory intact, responsive, speech normal Psychiatric: judgement/insight normal, memory normal, mood/affect normal, no suicidal/homicidal ideation Skin: no rash, normal color Medical Decision Making Diagnostic Impression: Primary Impression: UTI (lower urinary tract infection) Additional Impressions: Right groin pain Cancer of biliary tract Liver metastasis ER Course This patient presented with ongoing right groin pain. My differential diagnosis included urolithiasis, urinary tract infection, hernia, groin strain to name a few. The patient also reported concern about her liver and a history of a liver abnormality. Therefore, I work this patient up with laboratory work-up to include CBC, CMP and urinalysis. The patient was found to have a urinary tract infection. I suspect that the pain in the patient's right groin is actually a groin strain. This is based on physical exam. There was no evidence of urolithiasis or hernia on CT scan. However, unfortunately, the patient is found to have a biliary tract mass with liver metastasis. This is an incidental finding. The patient was given a printout of the CT results and instructed to follow-up closely with her primary care physician and that she will need to also follow-up with a grapple crew leader oncologist. Overall, the patient's laboratory work-up is benign. She is found to have a urinary tract infection. She is given IV Rocephin here in the emergency department. COVID-19 test was negative. Patient given a prescription for oral antibiotics for a urinary tract infection. The patient is given close return precautions and follow-up instructions. This patient was evaluated in the context of the global COVID-19 pandemic, w hich necessitated consideration that the patient might be at risk for infection with the [id number] virus that causes COVID-19. Institutional protocols and algorithms that pertain to the evaluation of patients at risk for COVID-19 and the state of rapid change based on information released by multiple regulatory bodies including the CDC and federal and state organizations. These policies and algorithms were followed during the patient's care in the ED. Laboratory Tests Test 08/10/20 15:18 White Blood Count 6.2 K/UL (4.8-10.8) Red Blood Count 4.85 M/UL (4.20-5.40) Hemoglobin 14.2 G/DL (12.0-16.0) Hematocrit 43.7 % (37.0-47.0) Mean Corpuscular Volume 90 FL (80-99) Mean Corpuscular Hemoglobin 29.2 PG (27.0-31.0) Mean Corpuscular Hemoglobin Concent 32.4 G/DL (32.0-36.0) Red Cell Distribution Width 12.9 % (11.6-14.8) Platelet Count 220 K/UL (150-450) Mean Platelet Volume 7.5 FL (6.5-10.1) Neutrophils (%) (Auto) 63.5 % (45.0-75.0) Lymphocytes (%) (Auto) 25.2 % (20.0-45.0) Monocytes (%) (Auto) 7.6 % (1.0-10.0) Eosinophils (%) (Auto) 2.6 % (0.0-3.0) Basophils (%) (Auto) 1.0 % (0.0-2.0) Urine Color Yellow Urine Appearance Cloudy Urine pH 6 (4.5-8.0) Urine Specific [place] 1.015 (1.005-1.035) Urine Protein Negative (NEGATIVE) Urine Glucose (UA) Negative (NEGATIVE) Urine Ketones Negative (NEGATIVE) Urine Blood Negative (NEGATIVE) Urine Nitrite Positive (NEGATIVE) H Urine Bilirubin Negative (NEGATIVE) Urine Urobilinogen 1 MG/DL (0.0-1.0) H Urine Leukocyte Esterase 1+ (NEGATIVE) H Urine RBC 0-2 /HPF (0 - 2) Urine WBC 10-15 /HPF (0 - 2) H Urine Squamous Epithelial Cells Moderate /LPF (NONE/OCC) H Urine Bacteria Many /HPF (NONE) H Sodium Level 140 MMOL/L (136-145) Potassium Level 4.0 MMOL/L (3.5-5.1) Chloride Level 103 MMOL/L (98-107) Carbon Dioxide Level 30 MMOL/L (21-32) Anion Gap 7 mmol/L (5-15) Blood Urea Nitrogen 13 mg/dL (7-18) Creatinine 0.8 MG/DL (0.55-1.30) Estimated Glomerular Filtration Rate > 60 mL/min (>60) Glucose Level 116 MG/DL (74-106) H Calcium Level 9.2 MG/DL (8.5-10.1) Total Bilirubin 0.4 MG/DL (0.2-1.0) Aspartate Amino Transferase (AST) 28 U/L (15-37) Alanine Aminotransferase (ALT) 35 U/L (12-78) Alkaline Phosphatase 119 U/L (46-116) H Total Protein 7.6 G/DL (6.4-8.2) Albumin 3.5 G/DL (3.4-5.0) Globulin 4.1 g/dL Albumin/Globulin Ratio 0.9 (1.0-2.7) L Microbiology Date/Time Source Procedure Growth Status 08/10/20 15:20 Nasopharynx SARS-CoV-2 RdRp Gene Assay - Final Complete CT/MRI/US Diagnostic Results CT/MRI/US Diagnostic Results : Imaging Test Ordered: CT abd/pelvis Impression Impression: Mass within the naz hepatis. Relationship to the pancreas uncertain; this most likely represents either a pancreatic neoplasm or a biliary neoplasm. This results in mild biliary obstruction and slight narrowing of the portal vein. Multiple liver masses, most likely metastatic deposits Cholelithiasis, also previously reported Fat attenuation mass within the uterus, presumably an intrauterine lipoma, also previously described Mild fullness to the right renal collecting system and ureter, without definite downstream obstructive lesion. Per discussion with referring physician, patient does have a urinary tract infection, which is probably the etiology of this finding Last Vital Signs Date Time Temp Pulse Resp B/P (MAP) Pulse Ox O2 Delivery O2 Flow Rate FiO2 08/10/20 14:59 98.6 86 20 126/87 (100) 98 Room Air Disposition: HOME, SELF-CARE Condition: Improved Referrals: [facility],REFERRING (PCP) Brandee Quan DO Aug 10, 2020 15:47
[2020-08-10 15:49] LABS: APPEARANCE,URINE CLOUDY; BILIRUBIN, URINE NEGATIVE (NEGATIVE); GLUCOSE, URINE (UA) NEGATIVE (NEGATIVE); KETONES,URINE NEGATIVE (NEGATIVE); LEUKOCYTE ESTERASE ,URINE 1+ (NEGATIVE); NITRITE,URINE POSITIVE (NEGATIVE); PH,URINE 6 (4.5-8.0); PROTEIN,URINE NEGATIVE (NEGATIVE); UROBILINOGEN,URINE 1 MG/DL (0.0-1.0)
[2020-08-10 15:57] LABS: COLOR,URINE YELLOW
[2020-08-10 16:00] LABS: ANION GAP 7 mmol/L (5-15); BLOOD UREA NITROGEN 13 mg/dL (7-18); CALCIUM 9.2 MG/DL (8.5-10.1); CARBON DIOXIDE 30 MMOL/L (21-32); CHLORIDE 103 MMOL/L (98-107); CREATININE 0.8 MG/DL (0.55-1.30); SODIUM 140 MMOL/L (136-145)
[2020-08-10 16:04] LABS: ALANINE AMINOTRANSFERASE 35 U/L (12-78); ALBUMIN 3.5 G/DL (3.4-5.0); ALBUMIN/GLOBULIN RATIO 0.9 (1.0-2.7); ALKALINE PHOSPHATASE 119 U/L (46-116); ASPARTATE AMINO TRANSFERASE 28 U/L (15-37); BILIRUBIN,TOTAL 0.4 MG/DL (0.2-1.0)
[2020-08-10 16:08] LABS: EOSINOPHILS % (AUTO) 2.6 % (0.0-3.0); HEMATOCRIT 43.7 % (37.0-47.0); HEMOGLOBIN 14.2 G/DL (12.0-16.0); LYMPHOCYTES % (AUTO) 25.2 % (20.0-45.0); MEAN CORPUSCULAR VOLUME 90 FL (80-99); MONOCYTES % (AUTO) 7.6 % (1.0-10.0); NEUTROPHILS % (AUTO) 63.5 % (45.0-75.0); PLATELET COUNT 220 K/UL (150-450); RED BLOOD COUNT 4.85 M/UL (4.20-5.40); RED CELL DISTRIBUTION WIDTH 12.9 % (11.6-14.8); WHITE BLOOD COUNT 6.2 K/UL (4.8-10.8)
[2020-08-10 17:10] VITALS: BP 131/84
[2020-08-10] MEDS ORDERED: cefTRIAXone 1 GM in NS 55 ML IVPB ONE (17:15)
--- NOTE | 2020-08-10 17:19 | Diagnostic Imaging Report ---
Clinical Indication: Abdominal pain, right groin pain for one week Technique: No oral contrast utilized, per emergency room physician request IV administration nonionic contrast. Venous phase spiral acquisition obtained through the abdomen and pelvis. Multiplanar reconstructions were generated. Total dose length product 822 mGycm. CTDIvol(s) 14 mGy. Dose reduction achieved using automated exposure control Comparison: 10/29/2014 Findings: Lack of enteric contrast limits assessment of the GI tract. The appendix is normal. There are colonic diverticula. No evidence of diverticulitis. No small bowel distention. No free or loculated intraperitoneal gas or fluid. The distal esophagus, stomach, duodenum are unremarkable. There is a mass within the naz hepatis. This is ill-defined, hypoattenuating, measures approximately 5.1 cm transverse by 5 cm AP by 3.7 cm craniocaudad. It is uncertain whether this rises from the pancreas or a separate from it. This narrows the main portal vein. There is an adjacent 2.2 cm satellite lesion deeper within the naz hepatis. There is mild dilatation of the central intrahepatic bile ducts. The common hepatic duct is obscured, and the downstream common bile duct is normal in caliber. This is new since the previous study Multiple low-attenuation lesions are seen within the liver. The largest of these is within segment 4A, measures 2.3 cm in diameter. This finding is new since the prior exam The gallbladder is completely filled with gallstones. This is also demonstrated previously. No gallbladder wall thickening. The spleen, adrenals, left kidney are unremarkable. There is a small cyst in the upper pole of the right kidney. There is mild fullness to the right renal collecting system and proximal ureter. No definite downstream obstructive lesion Again demonstrated is a fat-containing mass appears to be within the uterine fundus. This measures 2.5 cm in diameter, and is unchanged from the prior exam. No new pelvic mass or adenopathy. Posterior dependent atelectatic changes are seen at both lung bases. The bones are unremarkable for age. Impression: Mass within the naz hepatis. Relationship to the pancreas uncertain; this most likely represents either a pancreatic neoplasm or a biliary neoplasm. This results in mild biliary obstruction and slight narrowing of the portal vein. Multiple liver masses, most likely metastatic deposits Cholelithiasis, also previously reported Fat attenuation mass within the uterus, presumably an intrauterine lipoma, also previously described Mild fullness to the right renal collecting system and ureter, without definite downstream obstructive lesion. Per discussion with referring physician, patient does have a urinary tract infection, which is probably the etiology of this finding Findings discussed by phone with Dr. Little in the emergency room at the time of interpretation The CT scanner at [facility] is accredited by the [employer] and the scans are performed using protocols designed to limit radiation exposure to as low as reasonably achievable to attain images of sufficient resolution adequate for diagnostic evaluation.
[2020-08-10] MEDS ORDERED: NITROFURANTOIN100 M2 ORAL (17:44)
== END 2020-08-10 17:30 | disposition home or self-care (01) ==
LOC: EMR 15:17
DX: N39.0 Urinary tract infection, site not specified (principal); C24.9 Malignant neoplasm of biliary tract, unspecified; C78.7 Secondary malignant neoplasm of liver and intrahepatic bile duct; R10.31 Right lower quadrant pain; I10 Essential (primary) hypertension; E11.9 Type 2 diabetes mellitus without complications; Z79.84 Long term (current) use of oral hypoglycemic drugs
CPT/HCPCS: 36415; 74177; 80053; 81003; 85025; 87086; 87181; 96361; 96365; J0696; Q9965; U0002; Z7502; 99284